=== PATIENT | male | born 1940 | race African-American/Black ===

== ENCOUNTER 2018-02-01 13:19 | Observation (INO) | payer OTHER ==
--- NOTE | 2018-02-01 14:43 | RAD REPORT ---
EXAM DESCRIPTION: RAD - Chest Single View - 02/01/2018 2:12 pm CLINICAL HISTORY: Cough and congestion, productive cough COMPARISON: August 2017 TECHNIQUE: AP portable chest image was obtained 1408 hours . FINDINGS: Diffusely prominent interstitial markings are present focally more prominent in the left b ase. No large mass or consolidation. Most of the findings are baseline. Superimposed interstitial juan diego ma or infiltrate suspected as well. Patient may have a focal left base pneumonia. Heart size is heriberto l. Trachea is midline. Pulmonary vasculature within normal limits. No pneumothorax. No gross bony abn ormality seen. No acute aortic findings suspected. IMPRESSION: Diffusely prominent interstitial markings throughout the lung lang and focally more pr onounced in the left base. Findings are more pronounced than baseline and left base pneumonia and superimposed interstitial yoanna a suspected.
[2018-02-01 14:48] LABS: Absolute Lymphocytes (CBC) 1.6 K/uL (0.7-4.9); Absolute Monocytes 0.8 K/uL (0.1-1.3); Absolute Neutrophil 3.1 K/uL (1.8-8.0); Basophils % 0.4 % (0-1.3); Eosinophils % 4.7 % (0-4.4); Hematocrit 34.5 % (39.6-49.0); Lymphocytes % 27.1 % (15.3-44.8); MCH 30.2 pg (27.0-35.0); MCV 91.9 fL (80-100); MPV 7.5 fL (7.6-11.3); Monocytes % 14.3 % (3.3-12.3); RBC Red Blood Cell Count 3.75 M/uL (4.33-5.43)
[2018-02-01 15:00] LABS: Potassium 4.2 mEq/L (3.6-5.0)
[2018-02-01 15:03] LABS: Magnesium 2.1 mg/dL (1.8-2.5)
[2018-02-01 15:05] LABS: Protime INR 1.04
[2018-02-01 15:11] LABS: CKMB Creatine Kinase MB 0.6 ng/ml (0.3-4.0)
--- NOTE | 2018-02-01 15:43 | EDPHYS ---
Physician Documentation [facility] Name: King Dumont Age: 77 yrs Sex: Male : 1940 Arrival Date: 02/01/2018 Time: 13:20 Bed 23 Private MD: ED Physician Mohmaud Donovan HPI: 02/01 15:47 This 77 yrs old Black Male presents to ER via Wheelchair with complaints of Chest snw Congestion. 15:47 The patient has shortness of breath at rest. Onset: The symptoms/episode began/occurred snw gradually, 1 week(s) ago, and became worse and became persistent. Duration: The symptoms are continuous, and are steadily getting worse. Associated signs and symptoms: The patient has no apparent associated signs or symptoms. Severity of symptoms: At their worst the symptoms were moderate. The patient has experienced similar episodes in the past. It is unknown whether or not the patient has recently seen a physician. Spoke with Dr. Gomez. He is out of town. Admit to hospitalist.. Historical: - Allergies: 13:21 No Known Allergies; aa5 - Home Meds: 13:36 aspirin 81 mg Oral TbEC once daily for Myocardial Infarction Prevention [Active]; Lasix tl3 40 mg Oral tab 1 tab 2 times per day for Hypertension [Active]; simvastatin 40 mg Oral tab 1 tab once daily [Active]; - PMHx: 13:21 High Cholesterol; Hypertension; Prostate Cancer; aa5 - PSHx: 13:21 radiation; Hernia repair; CABG; aa5 - Immunization history:: Pneumococcal vaccine status is unknown. - Social history:: Smoking status: Patient/guardian denies using tobacco. - Ebola Screening: : No symptoms or risks identified at this time. ROS: 15:44 Constitutional: Negative for fever, chills, and weight loss, positive malaise Eyes: snw Negative for injury, pain, redness, and discharge, ENT: Negative for injury, pain, and discharge, Neck: Negative for injury, pain, and swelling, Cardiovascular: Negative for chest pain, palpitations, and edema, Respiratory: Negative for wheezing and pleuritic chest pain, + cough, fatigue, and shortness of breath Abdomen/GI: Negative for abdominal pain, nausea, vomiting, diarrhea, and constipation, Back: Negative for injury and pain, : Negative for injury, bleeding, discharge, and swelling, MS/Extremity: Negative for injury and deformity, Skin: Negative for injury, rash, and discoloration, Neuro: Negative for headache, weakness, numbness, tingling, and seizure. Exam: 15:42 Constitutional: This is a well developed, well nourished patient who is awake, alert, snw and in no acute distress. Head/Face: Normocephalic, atraumatic. Eyes: Pupils equal round and reactive to light, extra-ocular motions intact. Lids and lashes normal. Conjunctiva and sclera are non-icteric and not injected. Cornea within normal limits. Periorbital areas with no swelling, redness, or edema. ENT: Nares patent. No nasal discharge, no septal abnormalities noted. Tympanic membranes are normal and external auditory canals are clear. Oropharynx with no redness, swelling, or masses, exudates, or evidence of obstruction, uvula midline. Mucous membranes moist. Neck: Trachea midline, no thyromegaly or masses palpated, and no cervical lymphadenopathy. Supple, full range of motion without nuchal rigidity, or vertebral point tenderness. No Meningismus. Chest/axilla: Normal chest wall appearance and motion. Nontender with no deformity. No lesions are appreciated. Cardiovascular: Regular rate and rhythm with a normal S1 and S2. No gallops, murmurs, or rubs. Normal PMI, no JVD. No pulse deficits. 15:42 Abdomen/GI: Soft, non-tender, with normal bowel sounds. No distension or tympany. No guarding or rebound. No evidence of tenderness throughout. Back: No spinal tenderness. No costovertebral tenderness. Full range of motion. Skin: Warm, dry with normal turgor. Normal color with no rashes, no lesions, and no evidence of cellulitis. MS/ Extremity: Pulses equal, no cyanosis. Neurovascular intact. Full, normal range of motion. Neuro: Awake and alert, GCS 15, oriented to person, place, time, and situation. Cranial nerves II-XII grossly intact. Motor strength 5/5 in all extremities. Sensory grossly intact. Cerebellar exam normal. Normal gait. Psych: Awake, alert, with orientation to person, place and time. Behavior, mood, and affect are within normal limits. 15:42 Respiratory: the patient does not display signs of respiratory distress, Respirations: shallow respirations, that is moderate, Breath sounds: bronchial sounds, decreased breath sounds, that are mild, are heard in the left posterior lower lobe and right posterior lower lobe. Vital Signs: 13:21 BP 126 / 82; Pulse 78; Resp 16 S; Temp 97.3(TE); Pulse Ox 97% on R/A; Pain 0/10; aa5 13:31 BP 121 / 84; Pulse 76; Resp 18; Pulse Ox 96% on R/A; tl3 14:55 BP 118 / 86; Pulse 72; Resp 16; Temp 98; Pulse Ox 97% on R/A; tl3 16:15 BP 92 / 74; Pulse 79; Resp 18; Pulse Ox 99% ; tl3 17:29 BP 111 / 66; Pulse 84; Resp 16; Pulse Ox 98% ; tl3 MDM: 13:41 Patient medically screened. snw 15:37 Data reviewed: vital signs, nurses notes. Data interpreted: Pulse oximetry: on room air snw is 97 %. Interpretation: normal. Counseling: I had a detailed discussion with the patient and/or guardian regarding: the historical points, exam findings, and any diagnostic results supporting the discharge/admit diagnosis, the presence of at least one elevated blood pressure reading (>120/80) during this emergency department visit, lab results, radiology results, the need for further work-up and treatment in the hospital. Physician consultation: Jimbo Shah DO was called at 15:39, was contacted at 15:39, regarding admission, to the telemetry unit. and will see patient in ED, shortly. 02/01 13:42 Order name: Basic Metabolic Panel; Complete Time: 15:w 02/01 13:42 Order name: BNP; Complete Time: 15:11 snw 02/01 13:42 Order name: CBC with Diff; Complete Time: 14:55 snw 02/01 13:42 Order name: Ckmb; Complete Time: 15:11 snw 02/01 13:42 Order name: CPK; Complete Time: 15:11 snw 02/01 13:42 Order name: Magnesium; Complete Time: 15:11 w 02/01 13:42 Order name: PT-INR; Complete Time: 15:10 w 02/01 13:42 Order name: Ptt, Activated; Complete Time: 15:10 snw 02/01 13:42 Order name: Troponin (emerg Dept Use Only); Complete Time: 15:10 snw 02/01 13:42 Order name: XRAY Chest (1 view); Complete Time: 14:45 snw 02/01 13:42 Order name: Blood Culture Adult (2) snw 02/01 16:19 Order name: Urine Dipstick--Ancillary (enter results) ag 02/01 16:27 Order name: Urine Dipstick-Ancillary; Complete Time: 16:28 EDMS 02/01 13:42 Order name: EKG; Complete Time: 13:43 snw 02/01 13:42 Order name: Cardiac monitoring; Complete Time: 14:54 snw 02/01 13:42 Order name: EKG - Nurse/Tech; Complete Time: 16:14 snw 02/01 13:42 Order name: IV Saline Lock; Complete Time: 14:54 snw 02/01 13:42 Order name: Labs collected and sent; Complete Time: 14:54 snw 02/01 13:42 Order name: O2 Per Protocol; Complete Time: 14:54 snw 02/01 13:42 Order name: O2 Sat Monitoring; Complete Time: 14:54 snw 02/01 13:42 Order name: Urine Dipstick-Ancillary (obtain specimen); Complete Time: 15:54 snw Administered Medications: 16:00 Drug: LevaQUIN 500 mg Volume: 100 ml; Route: IVPB; Infused Over: 60 mins; Site: left tl3 antecubital; Delivery: Primary tubing; 17:24 Follow up: IV Status: Completed infusion; IV Intake: 100ml tl3 16:00 Drug: Albuterol 2.5 mg Route: Inhalation; tl3 16:20 Drug: Albuterol 2.5 mg Route: Inhalation; tl3 16:50 Drug: Albuterol 2.5 mg Route: Inhalation; tl3 Disposition: 02/02 08:28 Co-signature as Attending Physician, Mohamud Donovan MD I agree with the assessment and kdr plan of care. Disposition: 02/01/18 15:42 Hospitalization ordered by Salvaodr Mckeon for Observation. Preliminary diagnosis is Pneumonia, unspecified organism. - Bed requested for Telemetry/MedSurg (observation). - Status is Observation. tl3 - Condition is Stable. - Problem is new. - Symptoms are unchanged. UTI on Admission? No Signatures: Dispatcher [employer] EDMohamud Golden MD MD [facility] Cyndy Anders, THERAPIST SPEECH-C THERAPIST SPEECH-Csnw Marely Wyatt, RN RN aa5 Kendy Lawson Tammy, MOSES RN tl3 Corrections: (The following items were deleted from the chart) 02/01 15:49 15:42 Hospitalization Ordered by Jimbo Shah DO for Observation. Preliminary snw diagnosis is Pneumonia, unspecified organism. Bed requested for Telemetry/MedSurg (observation). Status is Observation. Condition is Stable. Problem is new. Symptoms are unchanged. UTI on Admission? No. snw 16:54 15:49 02/01/2018 15:42 Hospitalization Ordered by Salvador Mckeon MD for Observation. ag Preliminary diagnosis is Pneumonia, unspecified organism. Bed requested for Telemetry/MedSurg (observation). Status is Observation. Condition is Stable. Problem is new. Symptoms are unchanged. UTI on Admission? No. snw 17:56 16:54 02/01/2018 15:42 Hospitalization Ordered by Salvador Mckeon MD for Observation. tl3 Preliminary diagnosis is Pneumonia, unspecified organism. Bed requested for Telemetry/MedSurg (observation). Status is Observation. Condition is Stable. Problem is new. Symptoms are unchanged. UTI on Admission? No. ag
--- NOTE | 2018-02-01 15:43 | ER ---
Nurse's Notes [facility] Name: King Dumont Age: 77 yrs Sex: Male : 1940 Arrival Date: 02/01/2018 Time: 13:20 Bed 23 Private MD: Diagnosis: Pneumonia, unspecified organism Presentation: 02/01 13:20 Presenting complaint: Patient states: chest congestion and productive cough with white aa5 sputum that began 1 week ago. Pt also reports SOB on exertion. Transition of care: patient was not received from another setting of care. Onset of symptoms was January 2018. 13:20 Method Of Arrival: Wheelchair aa5 13:20 Acuity: LOC 3 aa5 13:20 Risk Assessment: Do you want to hurt yourself or someone else? Patient reports no aa5 desire to harm self or others. Initial Sepsis Screen: Does the patient meet any 2 criteria? No. Patient's initial sepsis screen is negative. Does the patient have a suspected source of infection? No. Patient's initial sepsis screen is negative. Care prior to arrival: None. Historical: - Allergies: 13:21 No Known Allergies; aa5 - Home Meds: 13:36 aspirin 81 mg Oral TbEC once daily for Myocardial Infarction Prevention [Active]; Lasix tl3 40 mg Oral tab 1 tab 2 times per day for Hypertension [Active]; simvastatin 40 mg Oral tab 1 tab once daily [Active]; - PMHx: 13:21 High Cholesterol; Hypertension; Prostate Cancer; aa5 - PSHx: 13:21 radiation; Hernia repair; CABG; aa5 - Immunization history:: Pneumococcal vaccine status is unknown. - Social history:: Smoking status: Patient/guardian denies using tobacco. - Ebola Screening: : No symptoms or risks identified at this time. Screenin:31 Abuse screen: Denies threats or abuse. Nutritional screening: No deficits noted. tl3 Tuberculosis screening: No symptoms or risk factors identified. Fall Risk None identified. Assessment: 13:31 Reassessment: pt reports s/s for one week, no fever, cough worse when lying down, tl3 generalized malaise not feeling well for last couple of days. General: Appears in no apparent distress. slender, well groomed, well developed, well nourished, Behavior is calm, cooperative, appropriate for age. Pain: Denies pain. Neuro: No deficits noted. Level of Consciousness is awake, alert, obeys commands, Oriented to person, place, time, situation, Appropriate for age. Cardiovascular: Heart tones S1 S2 present Patient's skin is warm and dry. Respiratory: Airway is patent Respiratory effort is even, unlabored, Respiratory pattern is regular, symmetrical, Breath sounds are clear bilaterally. GI: No signs and/or symptoms were reported involving the gastrointestinal system. : No signs and/or symptoms were reported regarding the genitourinary system. EENT: Reports nasal congestion since one week. Derm: No signs and/or symptoms reported regarding the dermatologic system. Musculoskeletal: No signs and/or symptoms reported regarding the musculoskeletal system. 16:14 Reassessment: No changes from previously documented assessment. Patient and/or family tl3 updated on plan of care and expected duration. Pain level reassessed. Patient is alert, oriented x 3, equal unlabored respirations, skin warm/dry/pink. discussed POC with family, pt aware of need for admit. Vital Signs: 13:21 BP 126 / 82; Pulse 78; Resp 16 S; Temp 97.3(TE); Pulse Ox 97% on R/A; Pain 0/10; aa5 13:31 BP 121 / 84; Pulse 76; Resp 18; Pulse Ox 96% on R/A; tl3 14:55 BP 118 / 86; Pulse 72; Resp 16; Temp 98; Pulse Ox 97% on R/A; tl3 16:15 BP 92 / 74; Pulse 79; Resp 18; Pulse Ox 99% ; tl3 17:29 BP 111 / 66; Pulse 84; Resp 16; Pulse Ox 98% ; tl3 ED Course: 13:20 Patient arrived in ED. aa5 13:22 Triage completed. aa5 13:22 Arm band placed on Patient placed in an exam room, on a stretcher. aa5 13:24 Savannah Zendejas, RN is Primary Nurse. tl3 13:31 Patient has correct armband on for positive identification. Placed in gown. Bed in low tl3 position. Call light in reach. Side rails up X 1. Adult w/ patient. Pulse ox on. NIBP on. 13:31 No provider procedures requiring assistance completed. tl3 13:41 Cyndy Anders FNP-C [facility]. snw 13:41 Mohamud Donovan MD is Attending Physician. snw 14:12 X-ray completed. Portable x-ray completed in exam room. Patient tolerated procedure jb2 well. 14:13 XRAY Chest (1 view) In Process Unspecified. EDMS 14:14 EKG done, by ground control approach technician. reviewed by Cyndy BERNAL. at1 14:20 Initial lab(s) drawn, by me, sent to lab. First set of blood cultures drawn by me. tl3 14:37 Inserted saline lock: 20 gauge in left antecubital area, using aseptic technique. Blood tl3 collected. 15:00 Second set of blood cultures drawn. tl3 15:41 Jimbo Shah DO is Hospitalizing Provider. snw 15:48 Hospitalizing Provider role handed off by Jimbo Shah DO snw 15:48 Salvador Mckeon MD is Hospitalizing Provider. snw 17:24 Urine Dipstick--Ancillary (enter results) Sent. tl3 17:28 Patient admitted, IV remains in place. tl3 Administered Medications: 16:00 Drug: LevaQUIN 500 mg Volume: 100 ml; Route: IVPB; Infused Over: 60 mins; Site: left tl3 antecubital; Delivery: Primary tubing; 17:24 Follow up: IV Status: Completed infusion; IV Intake: 100ml tl3 16:00 Drug: Albuterol 2.5 mg Route: Inhalation; tl3 16:20 Drug: Albuterol 2.5 mg Route: Inhalation; tl3 16:50 Drug: Albuterol 2.5 mg Route: Inhalation; tl3 Intake: 17:24 IV: 100ml; Total: 100ml. tl3 Outcome: 15:42 Decision to Hospitalize by Provider. snw 17:28 Admitted to Med/surg accompanied by tech, via wheelchair, with chart, Report called to tl3 MOSES Schwarz 17:28 Condition: stable 17:28 Instructed on the need for admit. 17:56 Patient left the ED. tl3 Signatures: Dispatcher [employer] EDMS Cyndy Anders, GABE DAYP-CsnIsak Sampson jb2 Marely Wyatt, RN RN aa5 Elba coffman, conductor sleeping car EKG Tat1 Savannah Zendejas, RN RN tl3
--- NOTE | 2018-02-01 15:47 | EKG ---
Test Date: 2018-02-01 Test Time: 14:00:37 Foil Cutter: BRONSON MEASUREMENT RESULTS: Intervals: Rate: 78 WV: 158 QRSD: 88 QT: 384 QTc: 437 Donna: P: 35 WV: 158 QRS: -18 T: 11 INTERPRETIVE STATEMENTS: Normal sinus rhythm Nonspecific ST abnormality Abnormal ECG Compared to ECG 11/23/2016 07:18:49 Possible ischemia no longer present ST (T wave) deviation still present Electronically Signed On 02-01-18 15:46:06 CDT by Nils Gonzalez
[2018-02-01] MEDS ORDERED: ALBUTEROL 2.5 MG/3 ML NEB SOL ONE (15:58)
[2018-02-01] MEDS ORDERED: Levofloxacin500mg IV 500 MG/100 ML BAG IV ONE (15:58)
[2018-02-01] MEDS ORDERED: IPRATROPIUM BROM 0.5MG/2.5ML NEB PRN (16:03)
[2018-02-01] MEDS ORDERED: ONDANSETRON 4 MG/2 ML VIAL IV PRN (16:03)
[2018-02-01] MEDS ORDERED: ALBUTEROL 2.5 MG/3 ML NEB SOL NEB PRN (16:03)
[2018-02-01] MEDS ORDERED: ACETAMINOPHEN 500 MG TAB PO PRN (16:03)
[2018-02-01 16:27] LABS: Urine Blood NEGATIVE (NEG); Urine Glucose NEGATIVE (NEG); Urine Protein NEGATIVE (NEG); Urine Specific Gravity 1.015 (1.005-1.030)
[2018-02-01] MEDS: NA CHLORIDE 0.9% 1,000 ML IV SCH (18:16)
[2018-02-01] MEDS: ENOXAPARIN 30 MG/0.3 ML SQ SCH (18:16)
[2018-02-01 18:36] VITALS: BMI 25.9
--- NOTE | 2018-02-02 02:02 | HP ---
Date of Admission: 02/01/2018 Primary Care Physician: Kedar Gomez MD Code Status: Full. History Of Present Illness: The patient is a 77-year-old male with past medical history of coronary artery disease, prostate cancer, pulmonary fibrosis, urinary retention, who was in his usual state of health until day of admission when he had worsening shortness of breath along with cough and sputum production that was clear. The patient also had some nausea and weakness. The patient came into the ER for further evaluation. His symptoms are constant, moderate, progressively worsening. Upon arri prashanth, his vital signs were stable. He was saturating 97% on room air. His workup revealed left lower lobe pneumonia and prominent interstitial marking, possible superimposed interstitial edema was susp ected. The patient's workup revealed a creatinine of 1.29. White count was normal. The patient's B UN and creatinine were normal. Urine was negative. The patient was referred for admission for pneum onia. When seen in the ER, the patient was awake, alert, oriented, in some mild distress. Elderly m evan, somewhat ill-appearing. Past Medical History: Prostate cancer, coronary artery disease, urinary retention, pulmonary fibrosi s. Past Surgical History: Coronary artery bypass graft and radiation therapy for the prostate. Ildefonso oquendo history of DVT. Allergies: NO KNOWN DRUG ALLERGIES. Medications: List reviewed. Social History: The patient denies any illicit drug use, alcohol use, or tobacco use. The patient i s mainly independent in his activities of daily living. Family History: Noncontributory in this 77-year-old male. Review of Systems: Ten point system reviewed, negative except as per HPI. Physical Examination: Vital Signs: Blood pressure 126/82, pulse 78, respirations 16, temperature 97.3, O2 saturation 97% o n room air. General: Awake, alert, oriented x3. Some mild distress. Elderly male, ill-appearing, frail, cachec tic. HEENT: Normocephalic, atraumatic. PERRLA. EOMI. Dry mucous membranes. Oropharynx is clear. Poor dentition. Conjunctiva anicteric. Neck: Supple. No JVD. Trachea midline. CV: S1, S2. Regular rate and rhythm. Peripheral pulses present, 1+ bilaterally. Respiratory: Diminished breath sounds throughout, left worse than right. No wheezing. Gastrointestinal: Abdomen is soft, nontender, nondistended. Positive bowel sounds. No guarding or rigidity. Extremities: No clubbing, cyanosis, or edema. No calf tenderness. Neurologic: Cranial nerves II through XII intact grossly. No focal neurological deficit. Speech is normal. Strength is symmetric in bilateral upper and lower extremities. No facial asymmetry. Skin: No rashes. Normal skin turgor. Psych: Mood is okay. Affect is flat. Insight and judgment are fair. Laboratory Data: UA is negative. Sodium 140, potassium 4.2, chloride 104, CO2 of 29. BUN 27, creat inine 1.29, glucose 103, calcium 9.7. Troponin less than 0.03. Magnesium 2.1. BNP 55. INR 1.04. WBC 5.9, H and H 11.3 and 34.5, platelets 211, neutrophils 63%. Diagnostic Data: Chest x-ray shows left lower lobe infiltrate, diffuse prominent interstitial markin gs, superimposed interstitial edema also suspected. I personally reviewed EKG; normal sinus rhythm, rate of 78, nonspecific ST-T wave changes. Assessment And Plan: A 77-year-old male with; 1.Left lower lobe pneumonia. We will start on IV antibiotics. Obtain blood cultures and sputum cul tures. 2.Acute kidney injury. We will continue with IV fluids. Monitor creatinine, avoid NSAIDs. 3.History of coronary artery disease. [place] artery and [place] heart without angina, status post co ronary artery bypass graft. We will continue home medications as appropriate. 4.History of prostate cancer, status post radiation therapy. 5.Gastrointestinal and deep venous thrombosis prophylaxis with PPI and Lovenox, renally dosed. Plan: Admit the patient to [facility], placed in observation. /ANISH Voice ID: [id number]
[2018-02-02 05:03] LABS: Absolute Lymphocytes (CBC) 1.6 K/uL (0.7-4.9); Absolute Monocytes 0.8 K/uL (0.1-1.3); Absolute Neutrophil 3.6 K/uL (1.8-8.0); Basophils % 0.6 % (0-1.3); Hematocrit 31.3 % (39.6-49.0); Lymphocytes % 25.7 % (15.3-44.8); MCH 30.1 pg (27.0-35.0); MCV 92.2 fL (80-100); MPV 7.4 fL (7.6-11.3); Monocytes % 12.8 % (3.3-12.3)
[2018-02-02 05:38] LABS: Albumin 3.4 g/dL (3.2-5.5); Bilirubin Total 0.4 mg/dL (0.3-1.2); Potassium 3.9 mEq/L (3.6-5.0); Protein, Total 7.2 g/dL (6.0-8.3)
[2018-02-02] MEDS: NA CHLORIDE 0.9% 1,000 ML IV SCH (06:01)
--- NOTE | 2018-02-02 14:16 | RAD REPORT ---
EXAM DESCRIPTION: Riki Pa And Lat (2 Views)02/02/2018 1:56 pm CLINICAL HISTORY: Cough COMPARISON: February 01, 2018 FINDINGS: Moderate bilateral interstitial lung opacities are unchanged having the appearance of pulm onary fibrosis. The heart is normal size. Postsurgical changes involve the chest IMPRESSION: No change in pulmonary fibrosis
--- NOTE | 2018-02-02 14:21 | RAD REPORT ---
EXAM DESCRIPTION: RAD - Lumbar Spine 3 Views - 02/02/2018 1:53 pm CLINICAL HISTORY: Back pain FINDINGS: Moderate rotoscoliosis involves the thoracolumbar spine. The bones are osteoporotic. No fracture is seen. No dislocation is noted. Moderate diffuse spondylosis involves the lumbar spine. Osteoarthritis involves the facet joints of l ower lumbar spine. There likely is spinal stenosis.
[2018-02-02] MEDS ORDERED: VANCOMYCIN/NS 1 gm 1 GM/250 ML BAG IVPB SCH (14:45)
[2018-02-02] MEDS ORDERED: VANCOMYCIN 1.25 GM in NA CHLORIDE 0.9% 250 ML IVPB SCH (15:00)
[2018-02-02] MEDS ORDERED: TAMSULOSIN 0.4 MG SR CAP PO SCH (15:08)
[2018-02-02] MEDS ORDERED: HYDROCODONE/APAP 7.5/325 MG TAB PO PRN (15:09)
[2018-02-02] MEDS ORDERED: Levofloxacin 750mg IV 750 MG/150 ML BAG IV SCH (16:00)
[2018-02-02] MEDS: DOCUSATE NA 100 MG CAP PO SCH ×2 (16:32→20:20)
[2018-02-02] MEDS: POLYETHYL GLY 3350 17 GM/DOSE PO SCH (16:34)
[2018-02-02] MEDS: ENOXAPARIN 30 MG/0.3 ML SQ SCH (16:35)
--- NOTE | 2018-02-02 16:36 | PN ---
Date of Progress Note: 02/02/2018 Subjective: The patient is seen and examined. Chart reviewed and case discussed with RN. The patie nt's primary is Dr. Gomez; however, he is out of town. The patient states he is doing better. No shortness of breath. The patient states his cough is improving. Review of Systems: Negative except as above. Medications: Reviewed. Physical Examination: Vital Signs: Temperature 97.5, heart rate 78, blood pressure 120/78, respirations 16, O2 95%. General: Awake, alert, oriented. Some mild distress, ill-appearing, elderly male, frail. CV: S1, S2. No murmurs. Peripheral pulses present. Respiratory: Clear to auscultation bilaterally. No wheezing. No stridor. No use of accessory musc les. Gastrointestinal: Abdomen is soft, nontender, and nondistended. Positive bowel sounds. Extremities: No clubbing, cyanosis, edema. Neurologic: Nonfocal. Laboratory Data: Sodium 139, potassium 3.9, chloride 107, CO2 27, BUN 20, creatinine 1.14, glucose 1 00, calcium 8.7. WBC 6.4, H and H 10.2 and 31.3, platelets 186. Blood cultures, preliminarily growt h shows gram-positive cocci in clusters. Chest x-ray personally reviewed shows no change in pulmonar y fibrosis, moderate bilateral interstitial lung opacities are unchanged, having the appearance of pu lmonary fibrosis. Lumbar spine x-ray shows likely spinal stenosis, moderate diffuse spondylosis invo lving the lumbar spine, osteoarthritis involves the facet joints of lower lumbar spine. No fracture is seen. Bones are osteoporotic. Moderate rotoscoliosis involving thoracolumbar spine. Assessment And Plan: A 77-year-old male with: 1.Left lower lobe pneumonia. We will continue IV antibiotics. Cultures showing gram-positive cocci . We will add vancomycin to IV antibiotics. Currently on Levaquin. Follow up on ID and sensitivity . 2.Acute kidney injury, resolved. We will continue IV fluids. Avoid NSAIDs. Monitor creatinine. 3.Coronary artery disease, [place] artery and [place] heart without angina, status post coronary arter y bypass graft. Continue medications. 4.History of prostate cancer, status post radiation therapy. 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 X-ray does not show any acute fracture s. Does show some probable spinal stenosis. 6.Normocytic normochromic anemia, likely anemia of chronic disease. We will continue to monitor. 7.Gastrointestinal and deep venous thrombosis prophylaxis with PPI and Lovenox. Plan: Continue IV antibiotics, which have been adjusted. Follow up on ID and sensitivity of blood c ultures. Likely discharge in the next 24-48 hours once more stable. /ANISH Voice ID: [id number] Report ID: [id number]
[2018-02-02] MEDS ORDERED: FUROSEMIDE 40 MG TABLET PO SCH (17:00)
[2018-02-02] MEDS ORDERED: ATORVASTATIN 20 MG TAB PO SCH (21:00)
[2018-02-03 04:45] LABS: Absolute Lymphocytes (CBC) 1.5 K/uL (0.7-4.9); Absolute Monocytes 0.8 K/uL (0.1-1.3); Absolute Neutrophil 3.3 K/uL (1.8-8.0); Basophils % 0.3 % (0-1.3); Eosinophils % 5.8 % (0-4.4); Hematocrit 31.6 % (39.6-49.0); Lymphocytes % 25.2 % (15.3-44.8); MCH 30.7 pg (27.0-35.0); MCV 90.6 fL (80-100); MPV 7.1 fL (7.6-11.3); Monocytes % 13.6 % (3.3-12.3); RBC Red Blood Cell Count 3.49 M/uL (4.33-5.43)
[2018-02-03 05:18] LABS: Albumin 3.5 g/dL (3.2-5.5); Bilirubin Total 0.5 mg/dL (0.3-1.2); Potassium 3.9 mEq/L (3.6-5.0); Protein, Total 7.3 g/dL (6.0-8.3)
[2018-02-03 06:43] VITALS: O2SAT 99
[2018-02-03] MEDS ORDERED: ASPIRIN EC 81 MG TAB PO SCH (09:00)
[2018-02-03] MEDS ORDERED: FUROSEMIDE 40 MG TABLET PO SCH (09:00)
[2018-02-03] MEDS ORDERED: VITAMIN D 1000 UNIT TAB PO SCH (09:00)
[2018-02-03] MEDS ORDERED: FERROUS SULFATE 325 MG TAB PO SCH (09:00)
[2018-02-03 09:13] VITALS: BP 129/89; TEMP 98.2
[2018-02-03] MEDS: DOCUSATE NA 100 MG CAP PO SCH (09:31)
[2018-02-03] MEDS: POLYETHYL GLY 3350 17 GM/DOSE PO SCH (09:32)
--- NOTE | 2018-02-03 11:14 | DS ---
Date of Discharge: 02/03/2018 Primary Care Physician: Dr. Gomez. Admitting Diagnoses: 1. Pneumonia, left lower lobe. 2. Acute kidney injury. 3. History of coronary artery disease, tolowa dee-ni' artery and tolowa dee-ni' heart without angina. 4. History of prostate cancer, status post radiation therapy. Discharge Diagnoses: 1. Left lower lobe pneumonia, improved with antibiotics. 2. Acute kidney injury, improved. 3. Coronary artery disease, tolowa dee-ni' artery and tolowa dee-ni' heart without angina, status post coronary artery bypass graft. 4. History of prostate cancer, status post radiation therapy. 5. 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 6. Normocytic normochromic anemia, likely anemia of chronic disease. Hospital Course: The patient is a 77-year-old male, patient of Dr. Gomez, who was admitted to the hospitalist service while we were covering for him while he is out of town. The patient came in with shortness of breath. He does have history of heart disease, pulmonary fibrosis, prostate cancer. The patient was found to have pneumonia. He was started on IV antibiotics. His blood cultures remained negative, did show a contaminant in 1 bottle coagulase- negative Staph. The patient's condition improved significantly with treatment. His shortness of breath improved. Cough essentially resolved. Patient was sent home in a stable condition. Follow up with PCP in 2-3 days Return to ER for worsening condition Medications as per reconciliation list Activity as tolerated Diet Heart healthy Physical Exam: General: AAOx3, NAD CV: S1, S2, RRR. Resp: CTA B/L GI: abd soft NT/ND +BS Ext: no c/c/e Neuro: Non focal SA/MODL Voice ID: [id number] Report ID: [id number] MTDD
== END 2018-02-03 10:42 | disposition home or self-care (01) ==
LOC: ER 13:19 → ERHOLD 15:53 → 2ND 17:36
PROVIDERS: ADMIT Family Medicine; ATTEND Family Medicine
DX: J18.9 Pneumonia, unspecified organism (principal); N17.9 Acute kidney failure, unspecified; I25.10 Atherosclerotic heart disease of native coronary artery without angina pectoris; M47.896 Other spondylosis, lumbar region; D63.8 Anemia in other chronic diseases classified elsewhere; Z85.46 Personal history of malignant neoplasm of prostate
CPT/HCPCS: 36415 ×2; 71045; 71046; 72100; 80048; 80053 ×2; 81003; 82550; 82553; 83735; 83880; 84484; 85025 ×3; 85610; 85730; 87040 ×2; 87205 ×2; 93005; 94760 ×2; 96365; 97163; 99285; G0378 ×2; J1650 ×2; J7030 ×2

== ENCOUNTER 2019-09-30 17:01 | Emergency (ER) | payer OTHER ==
[2019-09-30] MEDS ORDERED: NA CHLORIDE 0.9% 500 ML ONE ×2 (19:06→21:41)
[2019-09-30 19:08] LABS: Absolute Lymphocytes (CBC) 1.8 K/uL (0.7-4.9); Basophils % 0.3 % (0-1.3); Hematocrit 33.8 % (39.6-49.0); Lymphocytes % 19.7 % (15.3-44.8)
[2019-09-30 19:23] LABS: ALT/SGPT 10 U/L (12-78); AST/SGOT 17 U/L (15-37); Albumin 3.7 g/dL (3.4-5.0); Alkaline Phosphatase 70 U/L (45-117); BUN Blood Urea Nitrogen 40 mg/dL (7-18); Bicarbonate 27 mmol/L (21-32); Bilirubin Direct < 0.1 mg/dL (0-0.2); Bilirubin Total 0.3 mg/dL (0.2-1.0); Glucose Level 108 mg/dL (74-106); Lipase 80 U/L (73-393); Potassium 4.2 mmol/L (3.5-5.1); Protein, Total 8.9 g/dL (6.4-8.2); Sodium Level 139 mmol/L (136-145)
[2019-09-30 19:56] LABS: Urine Bacteria LOADED /HPF (NONE SEEN); Urine RBC TNTC /HPF (NONE SEEN)
[2019-09-30 19:57] LABS: Urine Amorphous Sediment 4+ /HPF (NONE SEEN); Urine Culture Reflex Order REFLEXED
[2019-09-30 19:58] LABS: Urine Blood 3+ (NEG); Urine Glucose NEGATIVE (NEG); Urine Protein 3+ (NEG); Urine Specific Gravity 1.025 (1.005-1.030); Urine pH 5.5 (5.0-7.0)
--- NOTE | 2019-09-30 20:00 | RAD REPORT ---
EXAM DESCRIPTION: CT - Abdomen Pelvis Wo Contrast - 09/30/2019 7:40 pm CLINICAL HISTORY: Abdominal pain / dysuria COMPARISON: 2013 TECHNIQUE: Computed axial tomography of the abdomen and pelvis was obtained. IV and oral contrast we re not requested. All CT scans are performed using dose optimization technique as appropriate and may include automated exposure control or mA/KV adjustment according to patient size. FINDINGS: The evaluation of solid organs, vessels and bowel is limited secondary to the lack of con trast administration. The liver, spleen, pancreas, and adrenals. 3.4 centimeter low-density right renal mass. Tiny nonobstructing right renal calculi. Marked left hydronephrosis. Left renal cortical thinning is seen. Left ureter is not dilated to the l evel of the bladder. The bladder is distended with a thickened and trabeculated wall. Internal radiation beams have been placed into the periprostatic region. The prostate gland is not si gnificantly enlarged Inguinal hernia repair The appendix is normal. There is no evidence of diverticulitis. Small umbilical hernia Spondylosis involves lumbar spine resulting in spinal stenosis IMPRESSION: Marked left hydronephrosis. Given the renal cortical thinning they are likely is a chron ic component. Left ureter is dilated. There may be left UVJ stricture, small obstructing mass or vesi coureteral reflux. Trabeculated, thickened bladder wall. Bladder distention.
[2019-09-30] MEDS ORDERED: CEFTRIAXONE/SWI 1gm 1 GM/10 ML SYR ONE (20:23)
--- NOTE | 2019-09-30 21:45 | ER ---
Nurse's Notes [facility] Name: King Dumont Age: 79 yrs Sex: Male : 1940 Arrival Date: 09/30/2019 Time: 17:04 Bed 15 Private MD: Kedar Gomez Diagnosis: Urinary tract infection, site not specified Presentation: 09/30 17:43 Presenting complaint: Patient states: abdominal pain starts couple of days ago, severe rv pain on the pubic area area. also pain with urination. denies any nausea and vomiting but was not able to eat well. no fever. with history of hernia. Transition of care: patient was not received from another setting of care. Onset of symptoms was September 30, 2019 at 08:00. Risk Assessment: Do you want to hurt yourself or someone else? Patient reports no desire to harm self or others. Initial Sepsis Screen: Does the patient meet any 2 criteria? No. Patient's initial sepsis screen is negative. Does the patient have a suspected source of infection? No. Patient's initial sepsis screen is negative. Care prior to arrival: None. 17:43 Method Of Arrival: Ambulatory rv 17:43 Acuity: LOC 3 rv Historical: - Allergies: 17:49 No Known Allergies; rv - Home Meds: 17:49 aspirin 81 mg Oral TbEC once daily for Myocardial Infarction Prevention [Active]; Lasix rv 40 mg Oral tab 1 tab 2 times per day for Hypertension [Active]; simvastatin 40 mg Oral tab 1 tab once daily [Active]; - PMHx: 17:49 Prostate Cancer; High Cholesterol; rv - PSHx: 17:49 Hernia repair; CABG; rv - Immunization history:: Adult Immunizations up to date, Flu vaccine is up to date. - Coronavirus screen:: The patient has NOT traveled to [place], [place], or [place] in the past 14 days. Proceed with normal triage process as indicated. The patient has NOT had contact with known/suspected case of Coronavirus?. - Social history:: Smoking status: Patient denies any tobacco usage or history of. - Ebola Screening: : No symptoms or risks identified at this time. Screenin:16 Abuse screen: Denies threats or abuse. Denies injuries from another. Nutritional mg2 screening: No deficits noted. Tuberculosis screening: No symptoms or risk factors identified. Fall Risk IV access (20 points). Assessment: 19:15 General: Appears in no apparent distress. comfortable, Behavior is calm, cooperative. mg2 Pain: Denies pain. Neuro: Level of Consciousness is awake, alert, obeys commands, Oriented to person, place, time, situation. Cardiovascular: Capillary refill < 3 seconds Patient's skin is warm and dry. Respiratory: Airway is patent Respiratory effort is even, unlabored, Respiratory pattern is regular, symmetrical. GI: Bowel sounds present X 4 quads. Abd is soft and non tender. : Urine is cloudy, Reports burning with urination. EENT: No signs and/or symptoms were reported regarding the EENT system. Derm: Skin is intact, is healthy with good turgor, Skin is pink, warm \T\ dry. normal. Musculoskeletal: Circulation, motion, and sensation intact. Capillary refill < 3 seconds. 20:29 Reassessment: Patient appears in no apparent distress at this time. Patient and/or mg2 family updated on plan of care and expected duration. Pain level reassessed. Patient is alert, oriented x 3, equal unlabored respirations, skin warm/dry/pink. Vital Signs: 17:46 BP 114 / 67; Pulse 89; Resp 16; Temp 98.3; Pulse Ox 98% on R/A; Weight 68.04 kg; rv 19:16 Pulse 81; Resp 18; Temp 98; Pulse Ox 98% on R/A; mg2 19:17 BP 108 / 74; mg2 20:29 Pulse 86; Resp 18; Pulse Ox 95% on R/A; mg2 22:35 BP 115 / 78; Pulse 80; Resp 18; Temp 98; Pulse Ox 100% on R/A; mg2 ED Course: 17:04 Patient arrived in ED. ag5 17:04 Kedar Gomez MD is Private Physician. ag5 17:46 Triage completed. rv 18:20 [facility] pm1 18:20 Mohamud Donovan MD is Attending Physician. pm1 18:21 Terrell Mccord, MOSES is Primary Nurse. mg2 18:47 Radiology exam delayed due to lab results not completed at this time. (BUN/Creatinine). bq 19:01 Initial lab(s) drawn, by me, sent to lab. Inserted saline lock: 22 gauge in left mh5 antecubital area, using aseptic technique. Blood collected. 19:02 Basic Metabolic Panel Sent. mh5 19:02 CBC with Diff Sent. 5 19:02 Creatinine for Radiology Sent. mh5 19:02 Hepatic Function Sent. 5 19:02 Lipase Sent. mh5 19:02 Patient has correct armband on for positive identification. Placed in gown. Bed in low mh5 position. Call light in reach. Side rails up X 1. Adult w/ patient. Warm blanket given. Pulse ox on. NIBP on. 19:16 No provider procedures requiring assistance completed. mg2 19:16 Arm band placed on. mg2 19:40 Abdomen In Process Unspecified. EDMS 19:40 CT completed. Patient tolerated procedure well. Patient moved back from CT. bq 21:44 Nydia Salazar MD is Referral Physician. pm1 22:35 IV discontinued, intact, bleeding controlled, No redness/swelling at site. Pressure mg2 dressing applied. Administered Medications: 19:12 Drug: NS 0.9% 500 ml Route: IV; Rate: bolus; Site: left antecubital; mg2 20:28 Drug: Rocephin 1 grams Route: IV; Rate: calculated rate; Site: left antecubital; mg2 21:34 Follow up: Response: No adverse reaction; IV Status: Completed infusion mg2 21:39 Drug: NS 0.9% 500 ml Route: IV; Rate: bolus; Site: left antecubital; mg2 22:34 Follow up: Response: No adverse reaction; IV Status: Completed infusion; IV Intake: mg2 500ml Intake: 22:34 IV: 500ml; Total: 500ml. mg2 Outcome: 21:44 Discharge ordered by MD. pm1 22:35 Discharged to home ambulatory, with family. mg2 22:35 Condition: stable 22:35 Discharge instructions given to patient, family, Instructed on discharge instructions, follow up and referral plans. medication usage, Demonstrated understanding of instructions, follow-up care, medications, Prescriptions given X 1. 22:36 Patient left the ED. mg2 Signatures: Dispatcher [employer] EDMS Alicia Mcfarlane bq French Arguello, RAILROAD CRANE OPERATOR RAILROAD CRANE OPERATOR pm1 Annika Mota mh5 Terrell Mccord RN RN mg2 Kelby Laboy RN RN Cammie Motta 5 Corrections: (The following items were deleted from the chart) 17:51 17:43 Presenting complaint: Patient states: abdominal pain starts couple of days ago, rv severe pain on the pubic area area. also pain with urination. denies any nausea and vomiting but was not able to eat well. no fever. rv
--- NOTE | 2019-09-30 21:46 | EDPHYS ---
Physician Documentation [facility] Name: King Dumont Age: 79 yrs Sex: Male : 1940 Arrival Date: 09/30/2019 Time: 17:04 Bed 15 Private MD: Kedar Gomez ED Physician Mohamud Donovan HPI: 09/30 18:43 This 79 yrs old Black Male presents to ER via Ambulatory with complaints of Abdominal pm1 Pain, Burning with urination. 18:43 The patient presents with abdominal pain suprapubic area. Onset: The symptoms/episode pm1 began/occurred 5 day(s) ago. The symptoms do not radiate. Associated signs and symptoms: Pertinent positives: dysuria. The symptoms are described as burning. Modifying factors: The symptoms are alleviated by nothing, the symptoms are aggravated by urination. Severity of pain: in the emergency department the pain is actually worse. The patient has been recently seen by a physician: the patient's primary care provider, Dr. Gomez. Patient history of prostate cancer and has been taking antibiotics indefinitely for chronic UTI from Dr. Salazar. Saw his PCP at the beginning of the year and the antibiotic was stopped. He reports onset of burning with urination and abdominal pain since then. Historical: - Allergies: 17:49 No Known Allergies; rv - Home Meds: 17:49 aspirin 81 mg Oral TbEC once daily for Myocardial Infarction Prevention [Active]; Lasix rv 40 mg Oral tab 1 tab 2 times per day for Hypertension [Active]; simvastatin 40 mg Oral tab 1 tab once daily [Active]; - PMHx: 17:49 Prostate Cancer; High Cholesterol; rv - PSHx: 17:49 Hernia repair; CABG; rv - Immunization history:: Adult Immunizations up to date, Flu vaccine is up to date. - Coronavirus screen:: The patient has NOT traveled to [place], [place], or [place] in the past 14 days. Proceed with normal triage process as indicated. The patient has NOT had contact with known/suspected case of Coronavirus?. - Social history:: Smoking status: Patient denies any tobacco usage or history of. - Ebola Screening: : No symptoms or risks identified at this time. ROS: 18:43 Constitutional: Negative for fever, chills, and weight loss, Cardiovascular: Negative pm1 for chest pain, palpitations, and edema, Respiratory: Negative for shortness of breath, cough, wheezing, and pleuritic chest pain. 18:43 Back: Negative for injury and pain. 18:43 MS/Extremity: Negative for injury and deformity, Skin: Negative for injury, rash, and discoloration, Neuro: Negative for headache, weakness, numbness, tingling, and seizure. 18:43 Abdomen/GI: Positive for abdominal pain, of the suprapubic area, Negative for nausea, vomiting, and diarrhea. 18:43 : Positive for burning with urination, Negative for flank pain, testicular pain Exam: 18:43 Constitutional: This is a well developed, well nourished patient who is awake, alert, pm1 and in no acute distress. Head/Face: Normocephalic, atraumatic. Neck: Trachea midline, no thyromegaly or masses palpated, and no cervical lymphadenopathy. Supple, full range of motion without nuchal rigidity, or vertebral point tenderness. No Meningismus. Chest/axilla: Normal chest wall appearance and motion. Nontender with no deformity. No lesions are appreciated. Cardiovascular: Regular rate and rhythm with a normal S1 and S2. No gallops, murmurs, or rubs. Normal PMI, no JVD. No pulse deficits. Respiratory: Lungs have equal breath sounds bilaterally, clear to auscultation and percussion. No rales, rhonchi or wheezes noted. No increased work of breathing, no retractions or nasal flaring. 18:43 Skin: Warm, dry with normal turgor. Normal color with no rashes, no lesions, and no evidence of cellulitis. MS/ Extremity: Pulses equal, no cyanosis. Neurovascular intact. Full, normal range of motion. 18:43 Abdomen/GI: Inspection: abdomen appears normal, Palpation: soft, in all quadrants, mild abdominal tenderness, in the suprapubic area. 18:43 Back: CVA tenderness, is absent, vertebral tenderness, is not appreciated. 18:43 Neuro: Orientation: is normal, Motor: is normal, moves all fours. Vital Signs: 17:46 BP 114 / 67; Pulse 89; Resp 16; Temp 98.3; Pulse Ox 98% on R/A; Weight 68.04 kg; rv 19:16 Pulse 81; Resp 18; Temp 98; Pulse Ox 98% on R/A; mg2 19:17 BP 108 / 74; mg2 20:29 Pulse 86; Resp 18; Pulse Ox 95% on R/A; mg2 22:35 BP 115 / 78; Pulse 80; Resp 18; Temp 98; Pulse Ox 100% on R/A; mg2 MDM: 18:20 Patient medically screened. pm1 20:14 Data reviewed: vital signs. Data interpreted: Pulse oximetry: on room air is 98 %. pm1 Interpretation: normal. 21:38 Counseling: I had a detailed discussion with the patient and/or guardian regarding: the pm1 historical points, exam findings, and any diagnostic results supporting the discharge/admit diagnosis, lab results, radiology results, the need for outpatient follow up, a urologist, and PCP, to return to the emergency department if symptoms worsen or persist or if there are any questions or concerns that arise at home. 09/30 18:37 Order name: Basic Metabolic Panel; Complete Time: 19:36 pm1 09/30 18:37 Order name: CBC with Diff; Complete Time: 19:36 pm1 09/30 18:37 Order name: Creatinine for Radiology; Complete Time: 19:36 pm1 09/30 18:37 Order name: Hepatic Function; Complete Time: 19:36 pm1 09/30 18:37 Order name: Lipase; Complete Time: 19:36 pm1 09/30 18:37 Order name: Urine Microscopic Only; Complete Time: 20:00 pm1 09/30 18:37 Order name: IV Saline Lock; Complete Time: 19:02 pm1 09/30 19:21 Order name: Urine Dipstick--Ancillary (enter results); Complete Time: 20:00 em1 09/30 19:34 Order name: Abdomen ; Complete Time: 20:02 EDNH 09/30 19:58 Order name: Urine Culture EDNH 09/30 18:37 Order name: Labs collected and sent; Complete Time: 19:02 pm1 09/30 18:37 Order name: Urine Dipstick-Ancillary (obtain specimen); Complete Time: 19:12 pm1 Administered Medications: 19:12 Drug: NS 0.9% 500 ml Route: IV; Rate: bolus; Site: left antecubital; mg2 20:28 Drug: Rocephin 1 grams Route: IV; Rate: calculated rate; Site: left antecubital; mg2 21:34 Follow up: Response: No adverse reaction; IV Status: Completed infusion mg2 21:39 Drug: NS 0.9% 500 ml Route: IV; Rate: bolus; Site: left antecubital; mg2 22:34 Follow up: Response: No adverse reaction; IV Status: Completed infusion; IV Intake: mg2 500ml Disposition: 10/01 10:01 Co-signature as Attending Physician, Mohamud Donovan MD I agree with the assessment and kdr plan of care. Disposition: 09/30/19 21:44 Discharged to Home. Impression: Urinary tract infection, site not specified. - Condition is Stable. - Discharge Instructions: Urinary Tract Infection, Adult. - Prescriptions for Bactrim DS 800- 160 mg Oral Tablet - take 1 tablet by ORAL route every 12 hours for 10 days; 20 tablet. - Medication Reconciliation Form, Thank You Letter, Antibiotic Education, Prescription Opioid Use form. - Follow up: Emergency Department; When: As needed; Reason: Worsening of condition. Follow up: Nydai Salazar MD; When: 2 - 3 days; Reason: Recheck today's complaints, Continuance of care, Re-evaluation by your physician. - Problem is new. - Symptoms have improved. Signatures: Dispatcher [employer] [facility] Mohamud Donovan MD MD [facility] French Arguello NP AGING ROOM OPERATOR pm1 Terrell Mccord, RN RN mg2 Kelby Laboy RN RN rv Corrections: (The following items were deleted from the chart) 09/30 19:34 18:38 Abdomen Pelvis W Con+CT.RAD.BRZ ordered. [facility] 22:36 21:44 09/30/2019 21:44 Discharged to Home. Impression: Urinary tract infection, site mg2 not specified. Condition is Stable. Forms are Medication Reconciliation Form, Thank You Letter, Antibiotic Education, Prescription Opioid Use. Follow up: Emergency Department; When: As needed; Reason: Worsening of condition. Follow up: Nydia Salazar; When: 2 - 3 days; Reason: Recheck today's complaints, Continuance of care, Re-evaluation by your physician. Problem is new. Symptoms have improved. pm1
[2019-09-30 23:06] VITALS: TEMP 98
[2019-09-30 23:10] VITALS: BP 115/78; O2SAT 100
== END 2019-09-30 22:36 | disposition home or self-care (01) ==
LOC: ER 17:01
DX: N39.0 Urinary tract infection, site not specified (principal); Z85.46 Personal history of malignant neoplasm of prostate; Z95.1 Presence of aortocoronary bypass graft
CPT/HCPCS: 96365; 96361; 87088; 85025; 87086; 80048; 36415; 80076; 83690; 74176; 99284; J0696; J7040 ×2; 81003; 81015

== ENCOUNTER 2020-01-23 13:17 | Emergency (ER) | payer OTHER ==
--- NOTE | 2020-01-23 15:43 | RAD REPORT ---
EXAM DESCRIPTION: Riki Single View01/23/2020 3:29 pm CLINICAL HISTORY: Shortness breath COMPARISON: 2019 FINDINGS: Bilateral interstitial lung opacities are unchanged. I suspect most not all this is chron ic The heart is mildly enlarged. Postsurgical changes involve the chest.
[2020-01-23 15:55] LABS: Absolute Lymphocytes (CBC) 1.5 K/uL (0.7-4.9); Basophils % 0.6 % (0-1.3); Hematocrit 34.7 % (39.6-49.0); Lymphocytes % 22.7 % (15.3-44.8); MPV 7.7 fL (7.6-11.3); RBC Red Blood Cell Count 3.84 M/uL (4.33-5.43)
[2020-01-23 16:00] LABS: Protime INR 1.06
[2020-01-23 16:14] LABS: ALT/SGPT 13 U/L (12-78); AST/SGOT 21 U/L (15-37); Albumin 3.8 g/dL (3.4-5.0); Alkaline Phosphatase 70 U/L (45-117); BUN Blood Urea Nitrogen 23 mg/dL (7-18); Bicarbonate 29 mmol/L (21-32); Bilirubin Direct 0.1 mg/dL (0-0.2); Bilirubin Total 0.3 mg/dL (0.2-1.0); Glucose Level 94 mg/dL (74-106); Magnesium 2.4 mg/dL (1.8-2.4); NT PRO-BNP 207 pg/mL (<450); Potassium 3.6 mmol/L (3.5-5.1); Protein, Total 9.4 g/dL (6.4-8.2); Sodium Level 140 mmol/L (136-145); Troponin (Emerg Dept Use Only) < 0.02 ng/mL (0.0-0.045)
--- NOTE | 2020-01-23 17:35 | ER ---
Nurse's Notes [facility] Name: King Dumont Age: 79 yrs Sex: Male : 1940 Arrival Date: 01/23/2020 Time: 13:21 Bed 4 Private MD: Diagnosis: Cough;Muscle weakness (generalized) Presentation: 01/22 13:26 Chief complaint: Patient states: decreased appetite, "stressing out on everything" sv started 3 days ago. Reports cough and SOB for 3 -4 days as well. Coronavirus screen: Proceed with normal triage. Patient reports a cough. Patient reports shortness of breath or difficulty breathing. Patient denies measured and/or subjective temperature greater than 100.4F prior to today's visit. Patient denies travel on a cruise ship or to a country the [facility] currently lists as an affected area. Patient denies contact with known and/or suspected case of COVID-19. Ebola Screen: No symptoms or risks identified at this time. Risk Assessment: Do you want to hurt yourself or someone else? Patient reports no desire to harm self or others. Onset of symptoms was January 19, 2020. 13:26 Method Of Arrival: Ambulatory sv 13:26 Acuity: LOC 3 sv 13:29 Initial Sepsis Screen: Does the patient meet any 2 criteria? No. Patient's initial sv sepsis screen is negative. Does the patient have a suspected source of infection? No. Patient's initial sepsis screen is negative. Triage Assessment: 13:31 General: Appears in no apparent distress. comfortable, Behavior is calm, cooperative, sv appropriate for age. Neuro: Level of Consciousness is awake, alert, obeys commands, Gait is steady. Respiratory: Respiratory effort is even, unlabored. Historical: - Allergies: 13:29 No Known Allergies; sv - PMHx: 13:29 High Cholesterol; Prostate Cancer; sv - PSHx: 13:29 Hernia repair; CABG; sv - Immunization history:: Adult Immunizations up to date. - Social history:: Smoking status: Patient denies any tobacco usage or history of. Screenin:47 Abuse screen: Denies threats or abuse. Denies injuries from another. Nutritional ph screening: No deficits noted. Tuberculosis screening: No symptoms or risk factors identified. Fall Risk None identified. Assessment: 15:46 General: Appears in no apparent distress. comfortable, well groomed, Behavior is calm, ph cooperative, appropriate for age, Reports fatigue for 1-2 days, Denies fever, chills. Pain: Denies pain. Neuro: Level of Consciousness is awake, alert, obeys commands, Oriented to person, place, time, situation, Reports weakness Denies blurred vision difficulty swallowing, headache. Cardiovascular: Reports fatigue, shortness of breath, Denies chest pain, vomiting, Capillary refill < 3 seconds in bilateral fingers Patient's skin is warm and dry. Respiratory: Reports shortness of breath on exertion cough that is non-productive, Airway is patent Respiratory effort is even, unlabored, Respiratory pattern is regular, symmetrical. GI: Patient currently denies abdominal pain, diarrhea, nausea, vomiting. : Denies burning with urination, urinary frequency. Derm: Skin is intact, is healthy with good turgor, Skin is pink, warm \\T\\ dry. 17:00 Reassessment: Patient appears in no apparent distress at this time. No changes from jl7 previously documented assessment. Patient and/or family updated on plan of care and expected duration. Pain level reassessed. Patient is alert, oriented x 3, equal unlabored respirations, skin warm/dry/pink. Vital Signs: 13:29 BP 112 / 87; Pulse 89; Resp 16; Temp 98.1; Pulse Ox 97% ; Height 5 ft. 2 in. (157.48 sv cm); 16:30 BP 117 / 87; Pulse 88; Resp 16; Pulse Ox 96% ; jl7 17:30 BP 139 / 85; Pulse 83; Resp 16; Pulse Ox 98% ; jl7 ED Course: 13:21 Patient arrived in ED. as 13:29 Triage completed. sv 13:29 Arm band placed on. sv 15:01 Jean Marie Beltrán PA is PHCP. jr8 15:01 Mohamud Donovan MD is Attending Physician. jr8 15:04 Lala Meza RN is Primary Nurse. ph 15:30 XRAY Chest (1 view) In Process Unspecified. EDMS 15:30 Missed attempt(s): 20 gauge in left hand. Bleeding controlled, band aid applied, dh3 catheter tip intact. 15:34 Initial lab(s) drawn, by me, sent to lab. Inserted saline lock: 20 gauge in left dh3 antecubital area, using aseptic technique. Blood collected. 15:40 EKG done, by ED staff, reviewed by Jean Marie GALVEZ. 3 15:48 Patient has correct armband on for positive identification. Placed in gown. Bed in low ph position. Call light in reach. Side rails up X 1. Pulse ox on. NIBP on. Door closed. Noise minimized. Warm blanket given. 17:49 No provider procedures requiring assistance completed. IV discontinued, intact, jl7 bleeding controlled, No redness/swelling at site. Pressure dressing applied. Administered Medications: No medications were administered Outcome: 17:35 Discharge ordered by . ayush 17:49 Discharged to home via wheelchair, with family. jl7 17:49 Condition: stable 17:49 Discharge instructions given to patient, Instructed on discharge instructions, follow up and referral plans. Demonstrated understanding of instructions, follow-up care. 17:49 Patient left the ED. jl7 Signatures: Dispatcher [employer] EDMS Samanta Naik RN RN Courtney Mota Josh, PA PA jr8 Lala Meza RN RN Trevor Edmonds RN RN jl7 Riri Christianson 3 Corrections: (The following items were deleted from the chart) 13:32 13:29 Resp 16bpm; Pulse Ox 97%; Temp 98.1F; Height 5 ft. 2 in.; sv sv 15:47 15:46 Respiratory: Reports shortness of breath on exertion Airway is patent Respiratory ph effort is even, unlabored, Respiratory pattern is regular, symmetrical, ph
--- NOTE | 2020-01-23 17:35 | EDPHYS ---
Physician Documentation [facility] Name: King Dumont Age: 79 yrs Sex: Male : 1940 Arrival Date: 01/23/2020 Time: 13:21 Bed 4 Private MD: ED Physician Mohamud Donovan HPI: 01/22 15:17 This 79 yrs old Black Male presents to ER via Ambulatory with complaints of Decreased jr8 appetite and fatigue. 15:17 Patient stated that he has not felt well for past few days. Loss of appetite and jr8 fatigue. Has had dry cough and some shortness of breath as well. Denies fevers or other symptoms. Severity of symptoms: At their worst the symptoms were mild in the emergency department the symptoms are unchanged. The patient has not experienced similar symptoms in the past. The patient has not recently seen a physician. Historical: - Allergies: 13:29 No Known Allergies; sv - PMHx: 13:29 High Cholesterol; Prostate Cancer; sv - PSHx: 13:29 Hernia repair; CABG; sv - Immunization history:: Adult Immunizations up to date. - Social history:: Smoking status: Patient denies any tobacco usage or history of. ROS: 15:17 Eyes: Negative for injury, pain, redness, and discharge, ENT: Negative for injury, jr8 pain, and discharge, Neck: Negative for injury, pain, and swelling, Cardiovascular: Negative for chest pain, palpitations, and edema, Abdomen/GI: Negative for abdominal pain, nausea, vomiting, diarrhea, and constipation, Back: Negative for injury and pain, : Negative for injury, bleeding, discharge, and swelling, buring, frequency, or urgency MS/Extremity: Negative for injury and deformity, Skin: Negative for injury, rash, and discoloration, Neuro: Negative for headache, weakness, numbness, tingling, and seizure. 15:17 Constitutional: Positive for fatigue, poor PO intake. 15:17 Respiratory: Positive for cough, dyspnea on exertion, shortness of breath. Exam: 15:17 Eyes: Pupils equal round and reactive to light, extra-ocular motions intact. Lids and jr8 lashes normal. Conjunctiva and sclera are non-icteric and not injected. Cornea within normal limits. Periorbital areas with no swelling, redness, or edema. ENT: Nares patent. No nasal discharge, no septal abnormalities noted. Tympanic membranes are normal and external auditory canals are clear. Oropharynx with no redness, swelling, or masses, exudates, or evidence of obstruction, uvula midline. Mucous membranes moist. Neck: Trachea midline, no thyromegaly or masses palpated, and no cervical lymphadenopathy. Supple, full range of motion without nuchal rigidity, or vertebral point tenderness. No Meningismus. Abdomen/GI: Soft, non-tender, with normal bowel sounds. No distension or tympany. No guarding or rebound. No evidence of tenderness throughout. Back: No spinal tenderness. No costovertebral tenderness. Full range of motion. Skin: Warm, dry with normal turgor. Normal color with no rashes, no lesions, and no evidence of cellulitis. MS/ Extremity: Pulses equal, no cyanosis. Neurovascular intact. Full, normal range of motion. Neuro: Awake and alert, GCS 15, oriented to person, place, time, and situation. Cranial nerves II-XII grossly intact. Motor strength 5/5 in all extremities. Sensory grossly intact. Cerebellar exam normal. Normal gait. 15:17 Cardiovascular: Rate: normal, Rhythm: regular, Pulses: Pulses are 2+ in right radial artery and left radial artery. Heart sounds: murmur, systolic, grade 3 over 6, heard in the aortic area, S1, normal, S2, normal, Edema: is not appreciated, JVD: is not appreciated. 15:17 Respiratory: the patient does not display signs of respiratory distress, Respirations: normal, symetrical, no use of accessory muscles, no grunting, no evidence of nasal flaring, no prolonged exhalations, no pursed lip breathing, no retractions, no shallow respirations, no splinting, no tachypnea, Breath sounds: rales, that are mild, are located in both bases. Vital Signs: 13:29 BP 112 / 87; Pulse 89; Resp 16; Temp 98.1; Pulse Ox 97% ; Height 5 ft. 2 in. (157.48 sv cm); 16:30 BP 117 / 87; Pulse 88; Resp 16; Pulse Ox 96% ; jl7 17:30 BP 139 / 85; Pulse 83; Resp 16; Pulse Ox 98% ; jl7 MDM: 15:01 Patient medically screened. jr8 17:32 Data reviewed: vital signs, nurses notes, lab test result(s), EKG, radiologic studies, plain films. Data interpreted: Pulse oximetry: on room air is 97 %. Interpretation: normal. Counseling: I had a detailed discussion with the patient and/or guardian regarding: the historical points, exam findings, and any diagnostic results supporting the discharge/admit diagnosis, lab results, radiology results, the need for outpatient follow up, a family practitioner, to return to the emergency department if symptoms worsen or persist or if there are any questions or concerns that arise at home. ED course: Discussed with patient that there are no acute emergent findings requiring admission to hospital at this time. Recommend observation at home. If symptoms were to worsen or change to come back for further evaluation. Otherwise to f/u with PCP. Patient good with this plan . 01/22 15:11 Order name: Basic Metabolic Panel; Complete Time: 16:42 jr8 01/22 15:11 Order name: CBC with Diff; Complete Time: 16:06 8 01/22 15:11 Order name: LFT's; Complete Time: 16:42 8 01/22 15:11 Order name: Magnesium; Complete Time: 16:42 8 01/22 15:11 Order name: NT PRO-BNP; Complete Time: 16:42 8 01/22 15:11 Order name: PT-INR; Complete Time: 16:06 01/22 15:11 Order name: Troponin (emerg Dept Use Only); Complete Time: 16:42 jr8 01/22 15:11 Order name: XRAY Chest (1 view); Complete Time: 15:54 8 01/22 15:11 Order name: EKG; Complete Time: 15:11 8 01/22 15:11 Order name: Cardiac monitoring; Complete Time: 15:50 8 01/22 15:11 Order name: EKG - Nurse/Tech; Complete Time: 15:50 01/22 15:11 Order name: IV Saline Lock; Complete Time: 15:50 01/22 15:11 Order name: Labs collected and sent; Complete Time: 15:51 jr8 01/22 15:11 Order name: O2 Per Protocol; Complete Time: 15:51 8 01/22 15:11 Order name: O2 Sat Monitoring; Complete Time: 15: Administered Medications: No medications were administered Disposition: 01/23 09:15 Co-signature as Attending Physician, Mohamud Donovan MD I agree with the assessment and kdr plan of care. Disposition: 01/23/20 17:35 Discharged to Home. Impression: Cough, Muscle weakness (generalized). - Condition is Stable. - Discharge Instructions: Weakness, Cough, Adult. - Medication Reconciliation Form, Thank You Letter, Antibiotic Education, Prescription Opioid Use form. - Follow up: Private Physician; When: 2 - 3 days; Reason: Recheck today's complaints, Continuance of care, Re-evaluation by your physician. - Problem is new. - Symptoms are unchanged. Signatures: Dispatcher [employer] EDMS Samanta Naik RN RN Mohamud Donovan MD MD kdr Roszak, Josh, PA PA jr8 Trevor Edmonds RN RN jl7 Corrections: (The following items were deleted from the chart) 01/22 17:32 15:17 Eyes: Negative for injury, pain, redness, and discharge, ENT: Negative for jr8 injury, pain, and discharge, Neck: Negative for injury, pain, and swelling, Cardiovascular: Negative for chest pain, palpitations, and edema, Abdomen/GI: Negative for abdominal pain, nausea, vomiting, diarrhea, and constipation, Back: Negative for injury and pain, MS/Extremity: Negative for injury and deformity, Skin: Negative for injury, rash, and discoloration, Neuro: Negative for headache, weakness, numbness, tingling, and seizure, jr8 17:49 17:35 01/23/2020 17:35 Discharged to Home. Impression: Cough; Muscle weakness jl7 (generalized). Condition is Stable. Forms are Medication Reconciliation Form, Thank You Letter, Antibiotic Education, Prescription Opioid Use. Follow up: Private Physician; When: 2 - 3 days; Reason: Recheck today's complaints, Continuance of care, Re-evaluation by your physician. Problem is new. Symptoms are unchanged. jr8
[2020-01-23 18:13] VITALS: TEMP 98.1
[2020-01-23 18:17] VITALS: BP 139/85; O2SAT 98
--- NOTE | 2020-01-24 06:30 | EKG ---
Test Date: 2020-01-23 Test Time: 15:40:39 Human Resources Supervisor: ODIN MEASUREMENT RESULTS: Intervals: Rate: 78 MS: 152 QRSD: 86 QT: 386 QTc: 440 Henley: P: 30 MS: 152 QRS: 3 T: 20 INTERPRETIVE STATEMENTS: Normal sinus rhythm Possible Left atrial enlargement Nonspecific ST and T wave abnormality Abnormal ECG Compared to ECG 02/01/2018 14:00:37 No significant changes Electronically Signed On 01-24-20 06:30:10 CDT by Nolan Benson
== END 2020-01-23 17:49 | disposition home or self-care (01) ==
LOC: ER 13:17
DX: R05 Cough (principal); M62.81 Muscle weakness (generalized); Z95.1 Presence of aortocoronary bypass graft; Z85.46 Personal history of malignant neoplasm of prostate
CPT/HCPCS: 36415; 71045; 80048; 80076; 83735; 83880; 84484; 85025; 85610; 93005; 99284

== ENCOUNTER 2020-01-24 12:05 | Emergency (ER) | payer OTHER ==
--- NOTE | 2020-01-24 13:08 | ER ---
Nurse's Notes [facility] [place] [address] [place] Name: King Dumont Age: 79 yrs Sex: Male : 1940 Arrival Date: 01/24/2020 Time: 12:09 Bed 19 Private MD: Diagnosis: Upper Back Pain - Resolved Presentation: 01/23 12:10 Chief complaint: Patient states: upper back pain that started last night. Pt took Tylenol 500mg at 1000am and pain is now 1/10. Coronavirus screen: Proceed with normal triage. Patient denies a cough. Patient denies shortness of breath or difficulty breathing. Patient denies measured and/or subjective temperature greater than 100.4F prior to today's visit. Patient denies travel on a cruise ship or to a country the [facility] currently lists as an affected area. Patient denies contact with known and/or suspected case of COVID-19. Ebola Screen: No symptoms or risks identified at this time. Initial Sepsis Screen: Does the patient meet any 2 criteria? No. Patient's initial sepsis screen is negative. Does the patient have a suspected source of infection? No. Patient's initial sepsis screen is negative. Risk Assessment: Do you want to hurt yourself or someone else? Patient reports no desire to harm self or others. Onset of symptoms was January 23, 2020. 12:10 Method Of Arrival: EMS: [facility] 12:10 Acuity: LOC 3 Historical: - Allergies: 12:16 No Known Allergies; - Home Meds: 12:16 aspirin 81 mg Oral TbEC once daily for Myocardial Infarction Prevention [Active]; Lasix ah 40 mg Oral tab 1 tab 2 times per day for Hypertension [Active]; simvastatin 40 mg Oral tab 1 tab once daily [Active]; tamsulosin 0.4 mg oral cp24 [Active]; finasteride 5 mg oral tab [Active]; furosemide 40 mg Oral tab [Active]; - PMHx: 12:16 High Cholesterol; Prostate Cancer; Hypertension; - PSHx: 12:16 bypass; - Immunization history:: Adult Immunizations up to date. - Social history:: Smoking status: Patient denies any tobacco usage or history of. Patient/guardian denies using alcohol. Screenin:56 Abuse screen: Denies threats or abuse. Nutritional screening: No deficits noted. Tuberculosis screening: No symptoms or risk factors identified. Fall Risk None identified. Assessment: 12:10 General: Appears in no apparent distress. Behavior is calm, cooperative, appropriate for age. Pain: Complains of pain in back Pain currently is 1 out of 10 on a pain scale. Alleviated by medications. Neuro: Level of Consciousness is awake, alert, Oriented to person, place, time, situation, Manuscript Editor are equal bilaterally. Cardiovascular: Heart tones S1 S2 present. Respiratory: Airway is patent Respiratory effort is even, unlabored, Respiratory pattern is regular, symmetrical. GI: Bowel sounds present X 4 quads. : No signs and/or symptoms were reported regarding the genitourinary system. EENT: No signs and/or symptoms were reported regarding the EENT system. Derm: No signs and/or symptoms reported regarding the dermatologic system. Musculoskeletal:. 13:15 Reassessment: Pt given discharge instructions and taken to lobby to his . Pt voiced understanding. was on the phone with daughter to pick them up and daughter requested to speak to nurse. Daughter asked what tests were run on the patient today, I replied that he was discharged yesterday evening and since there was no injury the provider reviewed all labs and images performed at that visit. Pt states that his pain is a 1/10 upon arrival to the hospital and has no more pain. The daughter continued to question what was done at yesterdays visit including labs and imaging. I replied that I was not here yesterday so I do not know any of that information. The daughter asked to speak to someone that knew what they were talking about and aware of yesterdays visit. Informed DEMETRIA Rose of conversation and she went to the lobby to speak to family. 13:30 Reassessment: Per verbal order, went to lobby and assisted Pt to the restroom to collect urine. Pt tolerated well and was put back in the lobby with in . I informed them I would inform them of results as they were completed. 13:45 Reassessment: Informed and Pt that urine was completey clean and that they were able to go home. politely thanked us for taking care of him. Vital Signs: 12:05 BP 134 / 92; Pulse 83; Resp 16; Pulse Ox 97% ; ah 12:10 BP 134 / 92; Pulse 82; Resp 18; Temp 99.1; Pulse Ox 99% ; Weight 64.41 kg; Height 5 ft. 2 in. (157.48 cm); Pain 1/10; 13:00 BP 125 / 90; Pulse 79; Resp 16; Pulse Ox 96% ; Pain 1/10; ah 12:10 Body Mass Index 25.97 (64.41 kg, 157.48 cm) ED Course: 12:09 Patient arrived in ED. 12:10 Mireya Gonzalez, RN is Primary Nurse. 12:12 Triage completed. 12:18 [facility] kb 12:19 Mohamud Donovan MD is Attending Physician. kb 12:56 Patient has correct armband on for positive identification. Bed in low position. Call light in reach. Side rails up X2. 13:15 No provider procedures requiring assistance completed. Patient did not have IV access during this emergency room visit. Administered Medications: No medications were administered Outcome: 13:08 Discharge ordered by . kb 13:45 Discharged to home via wheelchair. 13:45 Condition: good 13:45 Discharge instructions given to patient, family, Instructed on discharge instructions, Demonstrated understanding of instructions, follow-up care. 14:01 Patient left the ED. Signatures: Rose Flores FNP-C FNP-Michaelb Mireya Gonzalez RN RN
--- NOTE | 2020-01-24 13:08 | EDPHYS ---
Physician Documentation [facility] Name: King Dumont Age: 79 yrs Sex: Male : 1940 Arrival Date: 01/24/2020 Time: 12:09 Bed 19 Private MD: ED Physician Mohamud Donovan HPI: 01/23 13:05 This 79 yrs old Black Male presents to ER via EMS with complaints of upper back and kb neck pain. 13:05 The patient has not experienced similar symptoms in the past. The patient has been kb recently seen at the [facility] Emergency Department, yesterday, for unrelated complaints. 13:05 The patient presents with pain that is acute, with no known mechanism of injury. The kb symptoms are located in the posterior cervical area, left trapezius and right trapezius. Onset: The symptoms/episode began/occurred last night. The pain does not radiate. Associated signs and symptoms: Pertinent positives: none Pertinent negatives: abdominal pain, chest pain, constipation, dysuria, fever, headache, hematuria, incontinence, nausea, numbness, tingling, urinary retention, vomiting, weakness. The problem was sustained without known cause. Modifying factors: The patient symptoms are alleviated by OTC meds, tylenol, the patient symptoms are aggravated by nothing. Severity of symptoms: At their worst the symptoms were moderate, in the emergency department the symptoms have resolved. Pt reports back pain that started last night. STates he took 2 tylenol and the pain resolved. States "my is the one that called the ambulance. I don't know why she did. I feel pretty good now.". Historical: - Allergies: 12:16 No Known Allergies; - Home Meds: 12:16 aspirin 81 mg Oral TbEC once daily for Myocardial Infarction Prevention [Active]; Lasix ah 40 mg Oral tab 1 tab 2 times per day for Hypertension [Active]; simvastatin 40 mg Oral tab 1 tab once daily [Active]; tamsulosin 0.4 mg oral cp24 [Active]; finasteride 5 mg oral tab [Active]; furosemide 40 mg Oral tab [Active]; - PMHx: 12:16 High Cholesterol; Prostate Cancer; Hypertension; ah - PSHx: 12:16 bypass; ah - Immunization history:: Adult Immunizations up to date. - Social history:: Smoking status: Patient denies any tobacco usage or history of. Patient/guardian denies using alcohol. ROS: 13:07 Constitutional: Negative for fever, chills, and weight loss, ENT: Negative for injury, kb pain, and discharge, Cardiovascular: Negative for chest pain, palpitations, and edema, Respiratory: Negative for shortness of breath, cough, wheezing, and pleuritic chest pain, Abdomen/GI: Negative for abdominal pain, nausea, vomiting, diarrhea, and constipation, : Negative for injury, bleeding, discharge, and swelling, MS/Extremity: Negative for injury and deformity, Skin: Negative for injury, rash, and discoloration, Neuro: Negative for headache, weakness, numbness, tingling, and seizure. 13:07 Neck: Positive for pain with movement, pain at rest, Negative for injury or acute deformity, mass, rash, stiffness, swelling, swollen nodes, tenderness, bony tenderness. 13:07 Back: Positive for pain at rest, pain with movement, of the left trapezius and right trapezius, Negative for injury or acute deformity, decreased range of motion, radiated pain. Exam: 13:07 Constitutional: This is a well developed, well nourished patient who is awake, alert, kb and in no acute distress. Head/Face: Normocephalic, atraumatic. ENT: Nares patent. No nasal discharge, no septal abnormalities noted. Tympanic membranes are normal and external auditory canals are clear. Oropharynx with no redness, swelling, or masses, exudates, or evidence of obstruction, uvula midline. Mucous membranes moist. Neck: Trachea midline, no thyromegaly or masses palpated, and no cervical lymphadenopathy. Supple, full range of motion without nuchal rigidity, or vertebral point tenderness. No Meningismus. Chest/axilla: Normal chest wall appearance and motion. Nontender with no deformity. No lesions are appreciated. Cardiovascular: Regular rate and rhythm with a normal S1 and S2. No gallops, murmurs, or rubs. Normal PMI, no JVD. No pulse deficits. Respiratory: Lungs have equal breath sounds bilaterally, clear to auscultation and percussion. No rales, rhonchi or wheezes noted. No increased work of breathing, no retractions or nasal flaring. Abdomen/GI: Soft, non-tender, with normal bowel sounds. No distension or tympany. No guarding or rebound. No evidence of tenderness throughout. Skin: Warm, dry with normal turgor. Normal color with no rashes, no lesions, and no evidence of cellulitis. MS/ Extremity: Pulses equal, no cyanosis. Neurovascular intact. Full, normal range of motion. Neuro: Awake and alert, GCS 15, oriented to person, place, time, and situation. Cranial nerves II-XII grossly intact. Motor strength 5/5 in all extremities. Sensory grossly intact. Cerebellar exam normal. Normal gait. Vital Signs: 12:05 BP 134 / 92; Pulse 83; Resp 16; Pulse Ox 97% ; ah 12:10 BP 134 / 92; Pulse 82; Resp 18; Temp 99.1; Pulse Ox 99% ; Weight 64.41 kg; Height 5 ft. ah 2 in. (157.48 cm); Pain 1/10; 13:00 BP 125 / 90; Pulse 79; Resp 16; Pulse Ox 96% ; Pain 1/10; ah 12:10 Body Mass Index 25.97 (64.41 kg, 157.48 cm) MDM: 12:19 Patient medically screened. kb 13:04 Data reviewed: vital signs, nurses notes. Data interpreted: Pulse oximetry: on room air kb is 99 %. Interpretation: normal. Counseling: I had a detailed discussion with the patient and/or guardian regarding: the historical points, exam findings, and any diagnostic results supporting the discharge/admit diagnosis, the need for outpatient follow up, a family practitioner, to return to the emergency department if symptoms worsen or persist or if there are any questions or concerns that arise at home. 13:19 ED course: Pt was seen here yesterday for generalized weakness. Labs and x-ray kb reviewed. Pt has no complaints, will discharge home to follow up with PCP. 13:48 ED course: Spoke with pt's daughter after he was discharged. She asked what tests were kb done yesterday, I educated her on diagnostics and results. She questioned why we were not repeating tests. I educated her that I would repeat tests if the pt had a complaint the warranted diagnostic evaluation, however pt has no complaints. Daughter states she at least wants his urine checked to make sure he didn't have a UTI because he was complaining of back pain at home. I agreed to check pt's urine, but educated daughter that his pain was in his upper back/low neck this morning and that he has no urinary complaints. . 01/23 13:40 Order name: Urine Dipstick--Ancillary (enter results) eb Administered Medications: No medications were administered Disposition: 16:16 Co-signature as Attending Physician, Mohamud Donovan MD I agree with the assessment and kdr plan of care. Disposition: 01/24/20 13:08 Discharged to Home. Impression: Upper Back Pain - Resolved. - Condition is Stable. - Discharge Instructions: Back Pain, Adult, [id number]. - Medication Reconciliation Form, Thank You Letter, Antibiotic Education, Prescription Opioid Use form. - Follow up: Emergency Department; When: As needed; Reason: Worsening of condition. Follow up: Private Physician; When: 2 - 3 days; Reason: Recheck today's complaints, Continuance of care, Re-evaluation by your physician. Signatures: Dispatcher [employer] EDMS Rose Flores, [employer]-C KENNEDI-Mohamud Payan MD MD [facility] Mireya Gonzalez RN RN Corrections: (The following items were deleted from the chart) 13:20 13:19 ED course: Pt was seen here yesterday for generalized weakness. Labs and x-ray kb reviewed. . kb 14:01 13:08 01/24/2020 13:08 Discharged to Home. Impression: Upper Back Pain - Resolved. Condition is Stable. Forms are Medication Reconciliation Form, Thank You Letter, Antibiotic Education, Prescription Opioid Use. Follow up: Emergency Department; When: As needed; Reason: Worsening of condition. Follow up: Private Physician; When: 2 - 3 days; Reason: Recheck today's complaints, Continuance of care, Re-evaluation by your physician. kb
[2020-01-24 14:15] VITALS: TEMP 99.1
[2020-01-24 14:16] VITALS: BP 125/90; O2SAT 96
[2020-01-24 14:51] LABS: Urine Blood NEGATIVE (NEG); Urine Glucose NEGATIVE (NEG); Urine Protein NEGATIVE (NEG)
== END 2020-01-24 14:01 | disposition home or self-care (01) ==
LOC: ER 12:05
DX: M54.9 Dorsalgia, unspecified (principal); I10 Essential (primary) hypertension; E78.00 Pure hypercholesterolemia, unspecified; Z85.46 Personal history of malignant neoplasm of prostate
CPT/HCPCS: 81003; 99283

== ENCOUNTER 2021-11-25 17:59 | Emergency (ER) | payer OTHER ==
--- OUTSIDE RECORDS SUMMARY | 2021-11-25 18:01 | XMS REPORT | Continuity of Care Document ---
:1940 Author Organization [facility] t Address [address] [place] [address] Dr. Benedict [address] [place] [id number] Care Team Providers Name Role Phone Miller_S_AH Attending Clinician Unavailable Renetta-Mbayo_A_AH Attending Clinician Unavailable Miller_S_AH Admitting Clinician Unavailable Renetta-Mbayo_A_AH Admitting Clinician Unavailable Payers Payer Name Policy Type Policy Number Effective Date Expiration Date S aram [facility] [place] - [id number] 2019 [employer] 00:00:00 (MEDICARE REPLACEMENT/ADVANT AGE - HMO) Problems Condition Condition Condition Status Onset Resolution Last Treating Co mments Source Name Details Category Date Date Treatment Clinician Date Carcinoma Carcinoma Problem Active 2019-09 Rene jessica of of 09-20 Family prostate Prostate 00:00: Practi c 00 e Hyperlipid Hyperlipid Problem Active 2019-09 V [facility]age emia emia 09-20 Family 00:00: Practic 00 e Congestive Congestive Problem Active 2019-09 [facility] heart Heart 09-20 Family failure Failure 00:00: Practic 00 e Allergies, Adverse Reactions, Alerts This patient has no known allergies or adverse reactions. Social History Smoking Status Start Date Stop Date Source Never Smoker [facility] P ractice Medications This patient has no known medications. Vital Signs Vital Name Observation Time Observation Value Comments Source Height 2020-07-22 00:00:00 62 [in_i] [facility] BMI (Body Mass 2020-07-22 00:00:00 26.5 kg/m2 [facility] Practice Body Weight 2020-07-22 00:00:00 145 [lb_av] [facility] Procedures This patient has no known procedures. Plan of Care Planned Activity Planned Date Details Comments Source Instructions [facility] Encounters Start End Encounter Admission Attending Care Care Encounter Source Date/Time Date/Time Type Type Clinicians Facility Department ID 2021-02-05 2021-02-05 Outpatient Miller_S_AH VFP VFP [address] [place] [id number] 04:29:00 04:29:00 [id number] Family Practic e 2020-08-19 2020-08-19 Outpatient Renetta-Mbayo VFP VFP [id number] [facility] 11:57:00 11:57:00 _A_AH [id number] Family Practic e 2020-08-15 2020-08-15 Outpatient Renetta-Mbayo VFP VFP [id number] [facility] 08:59:00 08:59:00 _A_AH [id number] Family Practic e 2020-08-05 2020-08-05 Outpatient Renetta-Mbayo VFP VFP [id number] [facility] 03:08:00 03:08:00 _A_AH [id number] Family Practic e 2020-08-04 2020-08-04 Outpatient Renetta-Mbayo VFP VFP [id number] [facility] 09:39:00 09:39:00 _A_AH [id number] Family Practic e 2020-08-01 2020-08-01 Outpatient Renetta-Mbayo VFP VFP [address] [place] [id number] 08:21:00 08:21:00 _A_AH [id number] Family Practic e 2020-07-30 2020-07-30 Outpatient Renetta-Mbayo VFP VFP [address] [place] [id number] 03:37:00 03:37:00 _A_AH [id number] Family Practic e 2020-07-22 2020-07-22 Jaimie VFP [place] - [id number] [facility] 00:00:00 00:00:00 [facility] Fam gabo cantu 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, [address] [address], [place] [address] , Ph. 2019-10-24 2019-10-24 Outpatient Renetta-Mbayo VFP VFP [id number] 07:12:00 07:12:00 _A_AH [id number] Family Practic e 2019-10-24 2019-10-24 Outpatient Renetta-Mbayo VFP VFP [id number] [facility] 07:12:00 07:12:00 _A_AH [id number] Family Practic e Results This patient has no known results.
--- NOTE | 2021-11-25 20:20 | RAD REPORT ---
EXAM DESCRIPTION: RAD - Chest Single View - 11/25/2021 7:57 pm CLINICAL HISTORY: COUGH COMPARISON: Two view chest 10/06/2021 TECHNIQUE: AP portable chest image was obtained 11/25/2021 7:57 pm . FINDINGS: Chronic interstitial lung disease is present with interstitial pattern not clearly differe nt from comparison. No new mass or consolidations seen. Heart and vasculature are normal. No measurab le pleural effusion and no pneumothorax. No acute bony abnormality seen. No acute aortic findings ishan pected. IMPRESSION: Interstitial fibrotic pattern is similar to comparison. No acute findings seen since 10/06/2021 study.
[2021-11-25] MEDS ORDERED: FAMOTIDINE 20 MG/2 ML VIAL IV ONE (20:32)
[2021-11-25] MEDS ORDERED: CEFTRIAXONE 1000 MG/VIAL ONE (20:32)
[2021-11-25 20:38] LABS: Absolute Lymphocytes (CBC) 0.3 K/uL (0.7-4.9); Hematocrit 39.2 % (39.6-49.0); Lymphocytes % 3.3 % (15.3-44.8); MPV 7.3 fL (7.6-11.3); RBC Red Blood Cell Count 4.28 M/uL (4.33-5.43)
[2021-11-25 20:43] LABS: Protime INR 1.04
[2021-11-25 20:44] LABS: Urine Blood 1+ (Negative); Urine Glucose Negative (Negative); Urine Protein Trace (Negative); Urine pH 6.5 (5.0-7.0)
[2021-11-25 21:06] LABS: Albumin 3.4 g/dL (3.4-5.0); Bilirubin Direct 0.1 mg/dL (0-0.2); Bilirubin Total 0.4 mg/dL (0.2-1.0); Magnesium 2.4 mg/dL (1.8-2.4); Potassium 4.4 mmol/L (3.5-5.1); Protein, Total 8.8 g/dL (6.4-8.2)
[2021-11-25 21:23] LABS: SARS-COV-2 RT PCR NEGATIVE (NEGATIVE)
[2021-11-25 21:28] LABS: White Blood Cell Scan OK (OK)
[2021-11-25 21:29] LABS: Blood Morphology Comment NOT SEEN (NOT SEEN); Platelet Estimate ADEQ
[2021-11-25] MEDS ORDERED: AMOX/K CLAV 875 MG TAB ONE (22:20)
--- NOTE | 2021-11-25 22:25 | ER ---
Nurse's Notes [facility] Name: King Dumont Age: 81 yrs Sex: Male : 1940 Arrival Date: 11/25/2021 Time: 18:02 Bed 5 Private MD: Diagnosis: Cough;Acute upper respiratory infection, unspecified;UTI/ Urinary tract infection, site not specified;Unspecified kidney failure-CHRONIC Presentation: 11/25 18:14 Chief complaint: Patient's son or daughter states: "He is not feeling good. He's hoarse ab2 and has not had much of an appetite for about a week now." Pt denies any n/v/d or pain. Coronavirus screen: Vaccine status: Patient reports receiving the 2nd dose of the covid vaccine. Client denies travel out of the [place] in the last 14 days. At this time, the client does not indicate any symptoms associated with coronavirus-19. Ebola Screen: Patient negative for fever greater than or equal to 101.5 degrees Fahrenheit, and additional compatible Ebola Virus Disease symptoms Patient denies exposure to infectious person. Patient denies travel to an Ebola-affected area in the 21 days before illness onset. No symptoms or risks identified at this time. Initial Sepsis Screen: Does the patient meet any 2 criteria? No. Patient's initial sepsis screen is negative. Does the patient have a suspected source of infection? No. Patient's initial sepsis screen is negative. Risk Assessment: Do you want to hurt yourself or someone else? Patient reports no desire to harm self or others. Onset of symptoms is unknown. 18:14 Method Of Arrival: Ambulatory ab2 18:14 Acuity: LOC 3 ab2 Triage Assessment: 18:17 General: Appears in no apparent distress. comfortable, Behavior is calm, cooperative, ab2 appropriate for age. Pain: Denies pain. GI: Parent/caregiver reports the patient having Decreased appetite. Musculoskeletal: Parent/caregiver report the patient having weakness in whole body. Historical: - Allergies: 18:16 No Known Allergies; ab2 - PMHx: 18:16 High Cholesterol; Hypertension; Prostate Cancer; ab2 - PSHx: 18:16 Coronary artery bypass graft; ab2 - Immunization history:: Adult Immunizations up to date. - Social history:: Smoking status: Patient denies any tobacco usage or history of. - Family history:: not pertinent. Screenin:35 Abuse screen: Denies threats or abuse. Denies injuries from another. Nutritional lg3 screening: No deficits noted. Tuberculosis screening: No symptoms or risk factors identified. Fall Risk IV access (20 points). Gait- Weak (10 pts.). Total [place] Fall Scale indicates Low Risk Score (25-44 pts). Side Rails Up X 2 Family Present and informed to notify staff if they need to leave bedside As available Patient and Family Educated on Fall Prevention Program and strategies. Assessment: 20:35 General: Appears in no apparent distress. comfortable, Behavior is calm, cooperative. lg3 Pain: Denies pain. Neuro: No deficits noted. Level of Consciousness is awake, alert, obeys commands, Oriented to person, place, time, situation. Cardiovascular: No deficits noted. Denies chest pain, shortness of breath. Respiratory: No deficits noted. Airway is patent Trachea midline Respiratory effort is even, unlabored, Respiratory pattern is regular, symmetrical. GI: Bowel sounds present X 4 quads. Abd is soft and non tender X 4 quads. Reports decreased appetite. : No deficits noted. No signs and/or symptoms were reported regarding the genitourinary system. EENT: No deficits noted. No signs and/or symptoms were reported regarding the EENT system. Derm: No deficits noted. No signs and/or symptoms reported regarding the dermatologic system. Skin is intact, is thin, Skin is dry. Vital Signs: 18:14 BP 129 / 86; Pulse 100; Resp 17; Temp 98.4(TE); Pulse Ox 97% ; Weight 66.22 kg; Height ab2 5 ft. 3 in. (160.02 cm); Pain 0/10; 20:37 BP 127 / 98; Pulse 95; Resp 19; Pulse Ox 97% on R/A; lg3 22:45 BP 108 / 75; Pulse 92; Resp 16; Pulse Ox 100% on R/A; kd3 18:14 Body Mass Index 25.86 (66.22 kg, 160.02 cm) ab2 ED Course: 18:02 Patient arrived in ED. as 18:16 Triage completed. ab2 18:17 Arm band placed on left wrist. ab2 19:23 Josse Miranda MD is Attending Physician. neymar 19:59 XRAY Chest (1 view) In Process Unspecified. EDMS 20:06 Dory Bai, RN is Primary Nurse. lg3 20:26 COVID-19/FLU A+B (Document "Date of Onset" if Symptomatic) Sent. lg3 20:26 Procalcitonin Sent. lg3 20:26 Lactate Sent. lg3 20:26 Blood Culture Adult (2) Sent. lg3 20:26 Lipase Sent. lg3 20:26 Basic Metabolic Panel Sent. lg3 20:26 CBC with Diff Sent. lg3 20:26 LFT's Sent. lg3 20:26 Magnesium Sent. lg3 20:26 NT PRO-BNP Sent. lg3 20:27 PT-INR Sent. lg3 20:27 Troponin HS Sent. lg3 20:27 Inserted saline lock: 20 gauge in left antecubital area, using aseptic technique. Blood lg3 collected. 20:35 Patient has correct armband on for positive identification. Bed in low position. Call lg3 light in reach. Side rails up X2. groundwater monitoring technician on. Pulse ox on. NIBP on. Door closed. Noise minimized. Warm blanket given. 20:43 Urine Culture Sent. lg3 22:23 Kedar Gomez MD is Referral Physician. neymar 22:46 No provider procedures requiring assistance completed. IV discontinued, intact, kd3 bleeding controlled, No redness/swelling at site. Pressure dressing applied. Administered Medications: 20:33 Drug: Rocephin (cefTRIAXone) 1 grams Route: IV; Rate: per protocol; Site: left lg3 antecubital; 20:33 Follow up: Response: No adverse reaction; IV Status: Completed infusion; IV Intake: [id number] 20:33 Drug: Pepcid (famotidine) 20 mg Route: IVP; Site: left antecubital; lg3 20:33 Follow up: Response: No adverse reaction lg3 22:22 Drug: Augmentin (Amoxicillin-Clavulanate) 875 mg Route: PO; lg3 22:22 Follow up: Response: No adverse reaction lg3 Intake: 20:33 IV: 50ml; Total: 50ml. lg3 Outcome: 22:24 Discharge ordered by . neymar 22:46 Discharged to home ambulatory. kd3 22:46 Condition: stable 22:46 Discharge instructions given to patient, Instructed on discharge instructions, follow up and referral plans. Demonstrated understanding of instructions, follow-up care, medications, Prescriptions given X 1. 22:46 Patient left the ED. kd3 Addendum: 11/29/2021 09:37 Addendum: Culture Results: Positive urine culture. Bacteria is resistant to, has i w intermediate sensitivity, or is not tested against prescribed antibiotics. Report given to KAHLIL for further evaluation and then to veneer manufacturer for follow up with patient. Phone call Attempt #1 spoke with , will call in prescription to [facility] in [place] tomorrow, is closed on Sundays. 11/30/2021 09:45 Addendum: Culture Results: Prescription called-in to pharmacy of choice. to [facility] in [place], [place]. Called in Macrobid 100mg BID x 10 days per Jax.DEMETRIA Arguello. Signatures: Dispatcher [employer] Josse Castro MD MD cha Martinez, Amelia as Williams, Irene, MOSES LOPES iw Marely Wyatt RN RN aa5 Dory Bai RN RN lg3 Floridalma Pascual RN RN kd3 Morteza Cole
--- NOTE | 2021-11-25 22:25 | EDPHYS ---
Physician Documentation [facility] Name: King Dumont Age: 81 yrs Sex: Male : 1940 Arrival Date: 11/25/2021 Time: 18:02 Bed 5 Private MD: ED Physician Josse Miranda HPI: 11/25 22:15 This 81 yrs old Black Male presents to ER via Ambulatory with complaints of Decreased neymar Appetite, Cough. 22:15 The patient or guardian reports cough, described as mild, difficulty breathing, flu neymar symptoms, arthralgias, low-grade fever, myalgias. Onset: The symptoms/episode began/occurred 2 day(s) ago. Severity of symptoms: At their worst the symptoms were mild, in the emergency department the symptoms are unchanged. Modifying factors: The symptoms are alleviated by nothing, the symptoms are aggravated by nothing. Associated signs and symptoms: Pertinent positives: rhinorrhea, sore throat. The patient has experienced similar episodes in the past, a few times. Historical: - Allergies: 18:16 No Known Allergies; ab2 - PMHx: 18:16 High Cholesterol; Hypertension; Prostate Cancer; ab2 - PSHx: 18:16 Coronary artery bypass graft; ab2 - Immunization history:: Adult Immunizations up to date. - Social history:: Smoking status: Patient denies any tobacco usage or history of. - Family history:: not pertinent. ROS: 22:15 Constitutional: Negative for fever, chills, and weight loss, Eyes: Negative for injury, neymar pain, redness, and discharge, ENT: Negative for injury, pain, and discharge, Neck: Negative for injury, pain, and swelling, Cardiovascular: Negative for chest pain, palpitations, and edema, Respiratory: Negative for shortness of breath, cough, wheezing, and pleuritic chest pain, Back: Negative for injury and pain, : Negative for injury, bleeding, discharge, and swelling, MS/Extremity: Negative for injury and deformity, Skin: Negative for injury, rash, and discoloration, Neuro: Negative for headache, weakness, numbness, tingling, and seizure, Psych: Negative for depression, anxiety, suicide ideation, homicidal ideation, and hallucinations, Endocrine: Negative for neck swelling, polydipsia, polyuria, polyphagia, and marked weight changes. Exam: 22:15 Constitutional: This is a well developed, well nourished patient who is awake, alert, neymar and in no acute distress. Head/Face: Normocephalic, atraumatic. Eyes: Pupils equal round and reactive to light, extra-ocular motions intact. Lids and lashes normal. Conjunctiva and sclera are non-icteric and not injected. Cornea within normal limits. Periorbital areas with no swelling, redness, or edema. ENT: Nares patent. No nasal discharge, no septal abnormalities noted. Tympanic membranes are normal and external auditory canals are clear. Oropharynx with no redness, swelling, or masses, exudates, or evidence of obstruction, uvula midline. Mucous membranes moist. Neck: Trachea midline, no thyromegaly or masses palpated, and no cervical lymphadenopathy. Supple, full range of motion without nuchal rigidity, or vertebral point tenderness. No Meningismus. Chest/axilla: Normal chest wall appearance and motion. Nontender with no deformity. No lesions are appreciated. Cardiovascular: Regular rate and rhythm with a normal S1 and S2. No gallops, murmurs, or rubs. Normal PMI, no JVD. No pulse deficits. Respiratory: Lungs have equal breath sounds bilaterally, clear to auscultation and percussion. No rales, rhonchi or wheezes noted. No increased work of breathing, no retractions or nasal flaring. Abdomen/GI: Soft, non-tender, with normal bowel sounds. No distension or tympany. No guarding or rebound. No evidence of tenderness throughout. Back: No spinal tenderness. No costovertebral tenderness. Full range of motion. Male : Normal genitalia with no discharge or lesions. Skin: Warm, dry with normal turgor. Normal color with no rashes, no lesions, and no evidence of cellulitis. MS/ Extremity: Pulses equal, no cyanosis. Neurovascular intact. Full, normal range of motion. Neuro: Awake and alert, GCS 15, oriented to person, place, time, and situation. Cranial nerves II-XII grossly intact. Motor strength 5/5 in all extremities. Sensory grossly intact. Cerebellar exam normal. Normal gait. Psych: Awake, alert, with orientation to person, place and time. Behavior, mood, and affect are within normal limits. 22:26 ECG was reviewed by the Attending Physician. [facility] Vital Signs: 18:14 BP 129 / 86; Pulse 100; Resp 17; Temp 98.4(TE); Pulse Ox 97% ; Weight 66.22 kg; Height ab2 5 ft. 3 in. (160.02 cm); Pain 0/10; 20:37 BP 127 / 98; Pulse 95; Resp 19; Pulse Ox 97% on R/A; lg3 22:45 BP 108 / 75; Pulse 92; Resp 16; Pulse Ox 100% on R/A; kd3 18:14 Body Mass Index 25.86 (66.22 kg, 160.02 cm) ab2 MDM: 19:23 Patient medically screened. neymar 22:21 Differential Diagnosis: Bronchitis Influenza Upper Respiratory Infection Sinusitis neymar Pharyngitis Otitis Media Asthma Exacerbation. Data reviewed: vital signs, nurses notes, lab test result(s), EKG, radiologic studies, plain films. Data interpreted: security monitor: rate is 95 beats/min, rhythm is regular, Pulse oximetry: on room air Interpretation: normal. Test interpretation: by ED physician or midlevel provider: ECG, plain radiologic studies. Counseling: I had a detailed discussion with the patient and/or guardian regarding: the historical points, exam findings, and any diagnostic results supporting the discharge/admit diagnosis, lab results, radiology results, the need for outpatient follow up. 11/25 19: Order name: Basic Metabolic Panel; Complete Time: 21:11 [facility] 11/25 19:26 Order name: CBC with Diff; Complete Time: 22:01 [facility] 11/25 19:26 Order name: LFT's; Complete Time: 21:11 [facility] 11/25 19:26 Order name: Magnesium; Complete Time: 21:11 [facility] 11/25 19:26 Order name: NT PRO-BNP; Complete Time: 21:11 [facility] 11/25 19:26 Order name: PT-INR; Complete Time: 21:11 [facility] 11/25 19:26 Order name: Troponin HS; Complete Time: 21:11 [facility] 11/25 19:26 Order name: Lipase; Complete Time: 21:11 [facility] 11/25 19:26 Order name: Blood Culture Adult (2) [facility] 11/25 19:26 Order name: Lactate; Complete Time: 21:11 [facility] 11/25 19:26 Order name: Procalcitonin; Complete Time: 22:01 [facility] 11/25 19:26 Order name: COVID-19/FLU A+B (Document "Date of Onset" if Symptomatic); Complete Time: [facility] 22:11/25 19:26 Order name: Urine Culture [facility] 11/25 20:44 Order name: Urine Dipstick-Ancillary; Complete Time: 21:11 EDMS 11/25 19:26 Order name: XRAY Chest (1 view); Complete Time: 21:11 [facility] 11/25 19:26 Order name: EKG; Complete Time: 19:27 [facility] 11/25 19:26 Order name: Cardiac monitoring; Complete Time: 20:26 [facility] 11/25 19:26 Order name: EKG - Nurse/Tech; Complete Time: 20: [facility] 11/25 19:26 Order name: IV Saline Lock; Complete Time: 20: [facility] 11/25 19:26 Order name: Labs collected and sent; Complete Time: 20: [facility] 11/25 19:26 Order name: O2 Per Protocol; Complete Time: 20: [facility] 11/25 19:26 Order name: O2 Sat Monitoring; Complete Time: 20: [facility] 11/25 19:26 Order name: Urine Dipstick-Ancillary (obtain specimen); Complete Time: 20:43 [facility] 11/25 21:29 Order name: CBC Smear Scan; Complete Time: 22:01 EDMS EC: Rate is 99 beats/min. Rhythm is regular. QRS [place] is Normal. FL interval is normal. QRS neymar interval is normal. QT interval is normal. No Q waves. T waves are Normal. No ST changes noted. Clinical impression: NSR w/ Non-specific ST/T Changes and No evidence of ischemia. Interpreted by me. Reviewed by me. Administered Medications: 20:33 Drug: Rocephin (cefTRIAXone) 1 grams Route: IV; Rate: per protocol; Site: left lg3 antecubital; 20:33 Follow up: Response: No adverse reaction; IV Status: Completed infusion; IV Intake: 24cpvn3 20:33 Drug: Pepcid (famotidine) 20 mg Route: IVP; Site: left antecubital; lg3 20:33 Follow up: Response: No adverse reaction lg3 22:22 Drug: Augmentin (Amoxicillin-Clavulanate) 875 mg Route: PO; lg3 22:22 Follow up: Response: No adverse reaction lg3 Disposition Summary: 11/25/21 22:24 Discharge Ordered Location: Home [facility] Problem: new neymar Symptoms: have improved neymar Condition: Stable neymar Diagnosis - Cough neymar - Acute upper respiratory infection, unspecified neymar - UTI/ Urinary tract infection, site not specified neymar - Unspecified kidney failure - CHRONIC neymar Followup: neymar - With: Private Physician - When: Tomorrow - Reason: Recheck today's complaints, Continuance of care, Re-evaluation by your physician Followup: neymar - With: Kedar Gomez MD - When: Tomorrow - Reason: Recheck today's complaints, Continuance of care, Re-evaluation by your physician Discharge Instructions: - Discharge Summary Sheet neymar - Upper Respiratory Infection, Adult neymar - Urinary Tract Infection, Adult neymar - Cool Mist Vaporizer neymar - Upper Respiratory Infection, Adult, Silf-dg-Gxai neymar - Pharyngitis, Adpe-gs-Hkso neymar - Cough, Adult, Gtbt-mg-Extx neymar - Cough, Adult neymar - Chronic Kidney Disease, Adult, Qrhh-ki-Mnwb neymar Forms: - Medication Reconciliation Form [facility] - Thank You Letter [facility] - Antibiotic Education [facility] - Prescription Opioid Use [facility] Prescriptions: - Augmentin 875-125 mg Oral Tablet - take 1 tablet by ORAL route every 12 hours for 10 days; 20 tablet; Refills: 0, neymar Product Selection Permitted Signatures: Dispatcher [employer] Josse Castro MD MD cha Gibson, Lacie, MOSES RN lg3 Morteza Cole Sophia, PA PA sb3
[2021-11-25 23:19] VITALS: TEMP 98.4
[2021-11-25 23:22] VITALS: BP 108/75; O2SAT 100
--- NOTE | 2021-11-26 07:43 | EKG ---
Test Date: 2021-11-25 Test Time: 20:18:59 Buck Presser: PETR MEASUREMENT RESULTS: Intervals: Rate: 100 OK: 136 QRSD: 76 QT: 342 QTc: 441 [place]: P: 39 OK: 136 QRS: 28 T: 36 INTERPRETIVE STATEMENTS: * Pediatric ECG analysis * Normal sinus rhythm Nonspecific ST abnormality Compared to ECG 01/23/2020 15:40:39 No significant changes Electronically Signed On 11-26-21 07:41:24 CDT by Nolan Benson
== END 2021-11-25 22:46 | disposition home or self-care (01) ==
LOC: ER 17:59
DX: J06.9 Acute upper respiratory infection, unspecified (principal); N39.0 Urinary tract infection, site not specified; I12.9 Hypertensive chronic kidney disease with stage 1 through stage 4 chronic kidney disease, or unspecified chronic kidney disease; N18.9 Chronic kidney disease, unspecified; Z95.1 Presence of aortocoronary bypass graft; Z85.46 Personal history of malignant neoplasm of prostate; Z20.822 Contact with and (suspected) exposure to COVID-19
CPT/HCPCS: 93005; 87040 ×2; 87088; 85025; 87086; 80048; 36415; 83735; 85610; 80076; 83605; 87077; 87186; 81003; 84484; 83690; 84145; 83880; 0240U; 71045; 96375; 96374; 99284

== ENCOUNTER 2023-05-01 16:46 | Emergency (ER) | payer OTHER ==
--- OUTSIDE RECORDS SUMMARY | 2023-05-01 16:49 | XMS REPORT | Continuity of Care Document ---
:1940 Author Organization [facility] t Address [address] [place] [address] [place] [id number] Care Team Providers Name Role Phone Miller_S_AH Attending Clinician Unavailable Renetta-Mbayo_A_AH Attending Clinician Unavailable Miller_S_AH Admitting Clinician Unavailable Renetta-Mbayo_A_AH Admitting Clinician Unavailable Payers Payer Name Policy Type Policy Number Effective Date Expiration Date S aram [facility] [place] - [id number] 2019 [employer] 00:00:00 (MEDICARE REPLACEMENT/ADVANT AGE - HMO) Problems Condition Condition Condition Status Onset Resolution Last Treating Co mments Source Name Details Category Date Date Treatment Clinician Date Carcinoma Carcinoma Problem Active 2019-09 Rene jessica of of 16 Family prostate Prostate 00:00: Practi c 00 e Hyperlipid Hyperlipid Problem Active 2019-09 [facility] emia emia -16 Family 00:00: Practic 00 e Congestive Congestive Problem Active 2019-09 [facility] heart Heart 16 Family failure Failure 00:00: Practic 00 e Allergies, Adverse Reactions, Alerts This patient has no known allergies or adverse reactions. Social History Smoking Status Start Date Stop Date Source Never Smoker [facility] P ractice Medications This patient has no known medications. Vital Signs Vital Name Observation Time Observation Value Comments Source Height 2020-07-22 00:00:00 62 [in_i] [facility] BMI (Body Mass 2020-07-22 00:00:00 26.5 kg/m2 [facility] Index) Practice Body Weight 2020-07-22 00:00:00 145 [lb_av] [facility] Procedures This patient has no known procedures. Plan of Care Planned Activity Planned Date Details Comments Source Instructions [facility] Encounters Start End Encounter Admission Attending Care Care Encounter Source Date/Time Date/Time Type Type Clinicians Facility Department ID 2021-02-05 2021-02-05 Outpatient Miller_S_AH VFP VFP [id number] [facility] 04:29:00 04:29:00 [id number] Family Practic e 2020-08-19 2020-08-19 Outpatient Renetta-Mbayo VFP VFP [id number] [facility] 11:57:00 11:57:00 _A_AH [id number] Family Practic e 2020-08-15 2020-08-15 Outpatient Renetta-Mbayo VFP VFP [id number] [facility] 08:59:00 08:59:00 _A_AH [id number] Family Practic e 2020-08-05 2020-08-05 Outpatient Renetta-Mbayo VFP VFP [id number] [facility] 03:08:00 03:08:00 _A_AH [id number] Family Practic e 2020-08-04 2020-08-04 Outpatient Renetta-Mbayo VFP VFP [id number] [facility] 09:39:00 09:39:00 _A_AH [id number] Family Practic e 2020-08-01 2020-08-01 Outpatient Renetta-Mbayo VFP VFP [id number] [facility] 08:21:00 08:21:00 _A_AH [id number] Family Practic e 2020-07-30 2020-07-30 Outpatient Renetta-Mbayo VFP VFP [id number] 03:37:00 03:37:00 _A_AH [id number] Family Practic e 2020-07-22 2020-07-22 Jaimie VFP [place] - [id number] [facility] 00:00:00 00:00:00 RenettaLuisay [facility] Fam gabo cantu 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 2019-10-24 2019-10-24 Outpatient Renetta-Mbayo VFP VFP [id number] [facility] 07:12:00 07:12:00 _A_AH [id number] Family Practic e 2019-10-24 2019-10-24 Outpatient Renetta-Mbayo VFP VFP [id number] [facility] 07:12:00 07:12:00 _A_AH [id number] Family Practic e Results This patient has no known results.
[2023-05-01 18:12] LABS: Absolute Lymphocytes (CBC) 1.3 K/uL (0.7-4.9); Lymphocytes % 19.6 % (15.3-44.8); MCV 91.4 fL (80-100); MPV 6.9 fL (7.6-11.3); Platelets 227 thou/uL (152-406); RBC Red Blood Cell Count 3.83 M/uL (4.33-5.43)
[2023-05-01 18:34] LABS: Magnesium 2.4 mg/dL (1.6-2.4); Potassium 3.8 mEq/L (3.5-5.1); Troponin High Sensitivity 8.5 pg/mL (<58.9)
--- NOTE | 2023-05-01 19:30 | RAD REPORT ---
EXAM DESCRIPTION: RADChest Single View05/01/2023 6:55 pm CLINICAL HISTORY: COUGH COMPARISON: Chest Single View dated 03/04/2022; Chest Single View dated 03/01/2022; Chest Single View dated 11/25/2021; Chest Pa And Lat (2 Views) dated 10/06/2021; Thorax Wo Con dated 03/04/2022 TECHNIQUE: Portable AP view of the chest. FINDINGS: Chronic interstitial thickening, most prominent peripherally, stable. Stable bibasilar int erstitial and alveolar opacities more pronounced on the left. No pneumothorax or effusion. The cardio mediastinal contours are unremarkable. Sequelae of prior median sternotomy. IMPRESSION: Stable findings as above, suggestive of chronic interstitial lung disease. No new focal airspace opacities, although superimposed early infection would be difficult to exclude.
[2023-05-01 19:54] LABS: Urine Bacteria None Seen /HPF (<20); Urine Bilirubin NEGATIVE (Negative); Urine Blood Negative (Negative); Urine Clarity Clear (Clear); Urine Color Light-Yellow (Yellow); Urine Glucose NEGATIVE (Negative); Urine Mucus Slight /HPF (None Seen); Urine Protein NEGATIVE (Negative); Urine RBC <5 /HPF (None Seen); Urine Urobilinogen Normal (Normal)
--- NOTE | 2023-05-01 20:03 | ER ---
Nurse's Notes [facility] Name: Kign Dumont Age: 83 yrs Sex: Male : 1940 Arrival Date: 05/01/2023 Time: 16:46 Bed 5 Private MD: Kedar Gomez Diagnosis: Influenza due to other identified influenza virus with pneumonia Presentation: 05/01 17:25 Chief complaint: Patient states: pain all over, difficulty breathing. Coronavirus jl7 screen: At this time, the client does not indicate any symptoms associated with coronavirus-19. Ebola Screen: No symptoms or risks identified at this time. Initial Sepsis Screen: Does the patient meet any 2 criteria? No. Patient's initial sepsis screen is negative. Does the patient have a suspected source of infection? No. Patient's initial sepsis screen is negative. Risk Assessment: Do you want to hurt yourself or someone else? Patient reports no desire to harm self or others. Onset of symptoms is unknown. 17:25 Method Of Arrival: Ambulatory [facility] 17:25 Acuity: LOC 3 jl7 Triage Assessment: 18:11 Respiratory: the patient has mild shortness of breath. ph Historical: - Allergies: 17:26 No Known Allergies; jl7 - PMHx: 17:26 Chronic obstructive lung disease; High Cholesterol; Hypertension; Prostate Cancer; jl7 - PSHx: 17:26 Coronary artery bypass graft; hernia; jl7 - Immunization history:: Adult Immunizations unknown. - Social history:: Smoking status: Patient denies any tobacco usage or history of. Screenin:04 [facility] ED Fall Risk Assessment (Adult) History of falling in the last 3 months, ph including since admission No falls in past 3 months (0 pts) Confusion or Disorientation No (0 pts) Intoxicated or Sedated No (0 pts) Impaired Gait No (0 pts) Mobility Assist Device Used No (0 pt) Altered Elimination No (0 pt) Score/Fall Risk Level 0 - 2 = Low Risk Oriented to surroundings, Maintained a safe environment, Hourly rounding (assess needs \\T\\ fall precautionary measures) done. Abuse screen: Denies threats or abuse. Denies injuries from another. Nutritional screening: No deficits noted. Tuberculosis screening: No symptoms or risk factors identified. Assessment: 18:08 General: Appears in no apparent distress. comfortable, well groomed, Behavior is calm, ph cooperative, appropriate for age, Denies fever. Pain: Complains of pain in "body aches". Neuro: Level of Consciousness is awake, alert, obeys commands, Oriented to person, place, time, situation. Cardiovascular: Reports shortness of breath, Denies chest pain. Respiratory: Airway is patent Respiratory effort is even, unlabored, Respiratory pattern is regular, symmetrical. GI: No signs and/or symptoms were reported involving the gastrointestinal system. Patient currently denies nausea, vomiting. : No signs and/or symptoms were reported regarding the genitourinary system. Derm: Skin is pink, warm \\T\\ dry. Vital Signs: 17:25 BP 110 / 92; Pulse 90; Resp 17; Temp 97.7; Pulse Ox 100% ; Weight 64.41 kg; Height 5 7 ft. 3 in. ; Pain 10/10; 18:12 BP 125 / 85; Pulse 90; Resp 18; Pulse Ox 100% on R/A; ph 17:25 Body Mass Index 25.15 (64.41 kg, 160.02 cm) 7 17:25 Pain Scale: Adult [facility] ED Course: 16:47 Patient arrived in ED. rg4 16:47 Kedar Gomez MD is Private Physician. rg4 16:50 [facility] Bunch [facility]. cp 16:50 Josse Miranda MD is Attending Physician. cp 17:26 Triage completed. jl7 17:26 Arm band placed on right wrist. jl7 17:33 Lala Meza, RN is Primary Nurse. ph 18:05 Patient has correct armband on for positive identification. Placed in gown. Bed in low ph position. Call light in reach. Side rails up X2. beamer operator on. Pulse ox on. NIBP on. 18:07 No provider procedures requiring assistance completed. Initial lab(s) drawn, by me, ph sent to lab. EKG done, by ED staff, reviewed by Josse GALVEZ COVID swab sent to lab. Flu and/or RSV swab sent to lab. Inserted saline lock: 22 gauge in left antecubital area, using aseptic technique. Blood collected. 18:11 SARS-COV-2 RT PCR Sent. ph 18:11 Basic Metabolic Panel Sent. ph 18:11 CBC with Diff Sent. ph 18:11 Magnesium Sent. ph 18:11 NT PRO-BNP Sent. ph 18:11 Troponin HS Sent. ph 18:56 XRAY Chest (1 view) In Process Unspecified. EDMS 20:55 IV discontinued, intact, bleeding controlled, No redness/swelling at site. Pressure bp dressing applied. Administered Medications: No medications were administered Medication: 18:08 VIS not applicable for this client. ph Outcome: 20:03 Discharge ordered by . cp 20:55 Discharged to home via wheelchair, with family. bp 20:55 Condition: stable 20:55 Discharge instructions given to patient. 20:55 Patient left the ED. bp Signatures: Dispatcher [employer] EDMS Lala Meza RN RN ph Josse Bunch PA PA cp Garcia, Rubi rg4 Trevor Edmonds RN RN jl7 Yg Kent RN RN bp Corrections: (The following items were deleted from the chart) 18:12 18:11 Influenza Screen (A \\T\\ B)+BA.LAB.TWAN drawn and sent. ph EDMS
--- NOTE | 2023-05-01 20:03 | EDPHYS ---
Physician Documentation [facility] Name: King Dumont Age: 83 yrs Sex: Male : 1940 Arrival Date: 05/01/2023 Time: 16:46 Bed 5 Private MD: Kedar Gomez ED Physician Josse Miranda HPI: 05/01 17:50 This 83 yrs old Black Male presents to ER via Ambulatory with complaints of Body Aches, cp Breathing Difficulty. 17:50 The patient has shortness of breath with light activity. cp 17:50 Associated signs and symptoms: Pertinent positives: non-productive cough, body aches, cp chills, Pertinent negatives: chest pain, diaphoresis, fever, vomiting. Severity of symptoms: in the emergency department the symptoms are unchanged despite home interventions. Historical: - Allergies: 17:26 No Known Allergies; jl7 - PMHx: 17:26 Chronic obstructive lung disease; High Cholesterol; Hypertension; Prostate Cancer; jl7 - PSHx: 17:26 Coronary artery bypass graft; hernia; jl7 - Immunization history:: Adult Immunizations unknown. - Social history:: Smoking status: Patient denies any tobacco usage or history of. ROS: 17:55 Constitutional: Positive for body aches, malaise, Negative for fever. cp 17:55 Eyes: Negative for injury, pain, redness, and discharge. cp 17:55 Respiratory: Positive for cough. 17:55 Abdomen/GI: Negative for abdominal pain, vomiting, diarrhea, constipation. 17:55 ENT: Negative for drainage from ear(s), ear pain, difficulty swallowing, difficulty cp handling secretions. 17:55 Cardiovascular: Negative for chest pain, edema, palpitations. 17:55 Back: Positive for pain at rest, pain with movement. cp 17:55 Skin: Negative for rash. 17:55 Neuro: Negative for altered mental status, dizziness, numbness, syncope, weakness. 17:55 : Positive for urinary frequency. cp Exam: 17:55 Head/Face: Normocephalic, atraumatic. cp 17:55 Constitutional: The patient appears in no acute distress, alert, awake, non-diaphoretic, non-toxic, well developed, well nourished, uncomfortable. 17:55 Eyes: Periorbital structures: appear normal, Conjunctiva: normal, no exudate, no injection, Sclera: no appreciated abnormality, Lids and lashes: appear normal, bilaterally. 17:55 ENT: External ear(s): are unremarkable, Nose: is normal, Mouth: Lips: moist, Oral cp mucosa: pink and intact, moist, Posterior pharynx: is normal, airway is patent, no erythema, no exudate. 17:55 Neck: ROM/movement: is normal, is supple, without pain, no range of motions limitations, no meningismus, Lymph nodes: no appreciated lymphadenopathy. 17:55 Chest/axilla: Inspection: normal, Palpation: is normal, no crepitus, no tenderness. 17:55 Cardiovascular: Rate: normal, Rhythm: regular, Edema: is not appreciated, JVD: is not appreciated. 17:55 Respiratory: the patient does not display signs of respiratory distress, Respirations: normal, no use of accessory muscles, no retractions, labored breathing, Breath sounds: are clear throughout, no decreased breath sounds, no stridor, no wheezing. 17:55 Abdomen/GI: Inspection: abdomen appears normal, Palpation: abdomen is soft and non-tender, in all quadrants. 17:55 Back: pain, that is mild, ROM is normal. 17:55 Skin: cellulitis, is not appreciated, no rash present. 17:55 Neuro: Orientation: to person, place \T\ time. Mentation: able to follow commands, slow to respond. 18:07 ECG was reviewed by the Attending Physician. Vital Signs: 17:25 BP 110 / 92; Pulse 90; Resp 17; Temp 97.7; Pulse Ox 100% ; Weight 64.41 kg; Height 5 jl7 ft. 3 in. ; Pain 10/10; 18:12 BP 125 / 85; Pulse 90; Resp 18; Pulse Ox 100% on R/A; ph 17:25 Body Mass Index 25.15 (64.41 kg, 160.02 cm) jl7 17:25 Pain Scale: Adult jl7 MDM: 17:16 Patient medically screened. cp 18:00 Differential diagnosis: Bronchitis CHF exacerbation, pneumonia, pulmonary edema, cp Pulmonary Embolism Sepsis Unstable Angina. 20:03 Data reviewed: vital signs, nurses notes, lab test result(s), EKG, radiologic studies, cp plain films. 20:03 Consideration of Admission/Observation Escalation of care including cp admission/observation considered. I considered the following discharge prescriptions or medication management in the emergency department Medications were administered in the Emergency Department. See MAR. Independent interpretation of the following test(s) in the Emergency Department EKG: See my EKG interpretation above. Test considered but Not performed: CT: chest. Care significantly affected by the following chronic conditions: Hypertension, Chronic Obstructive Pulmonary Disease. Counseling: I had a detailed discussion with the patient and/or guardian regarding the historical points, exam findings, and any diagnostic results supporting the discharge/admit diagnosis, lab results, radiology results, the need for outpatient follow up, a general surgeon. 05/01 17:40 Order name: Basic Metabolic Panel; Complete Time: 19:06 05/01 19:07 Interpretation: Normal except: NA 135; CRE 1.32; GFR 53. 05/01 17:40 Order name: CBC with Diff; Complete Time: 19:06 05/01 19:07 Interpretation: Normal except: RBC 3.83; HGB 11.6; HCT 35.0; MPV 6.9. 05/01 17:40 Order name: Magnesium; Complete Time: 19:06 05/01 17:40 Order name: NT PRO-BNP; Complete Time: 19:06 05/01 17:40 Order name: Troponin HS; Complete Time: 19:06 05/01 17:40 Order name: Urinalysis W/Microscopic; Complete Time: 20:40 05/01 17:41 Order name: SARS-COV-2 RT PCR; Complete Time: 19:06 05/01 17:41 Order name: Influenza Screen (a \T\ B); Complete Time: 19:06 05/01 19:07 Interpretation: Normal except: FLUB FLU B ----- POSITIVE for FLU B protein antigen. 05/01 17:40 Order name: XRAY Chest (1 view); Complete Time: 19:31 05/01 17:40 Order name: EKG; Complete Time: 17:41 05/01 17:40 Order name: Cardiac monitoring; Complete Time: 18:11 05/01 17:40 Order name: EKG - Nurse/Tech; Complete Time: 18:11 05/01 17:40 Order name: IV Saline Lock; Complete Time: 18:11 05/01 17:40 Order name: Labs collected and sent; Complete Time: 18:11 cp 05/01 17:40 Order name: O2 Per Protocol; Complete Time: 18:11 cp 05/01 17:40 Order name: O2 Sat Monitoring; Complete Time: 18:11 cp EC:07 Rate is 88 beats/min. Rhythm is regular. DC interval is normal. QRS interval is normal. cp QT interval is normal. T waves are Inverted in leads aVL, V2, V4, V5. Interpreted by me. Reviewed by me. Administered Medications: No medications were administered Disposition Summary: 05/01/23 20:03 Discharge Ordered Location: Home cp Problem: new cp Symptoms: have improved cp Condition: Stable cp Diagnosis - Influenza due to other identified influenza virus with pneumonia cp Followup: cp - With: Private Physician - When: 2 - 3 days - Reason: Recheck today's complaints Discharge Instructions: - Influenza, Adult snw - Rehydration, Pediatric snw - Discharge Summary Sheet cp Forms: - Medication Reconciliation Form cp - Thank You Letter cp - Antibiotic Education cp - Prescription Opioid Use cp - Patient Portal Instructions cp - Leadership Thank You Letter cp Prescriptions: - Zithromax Z-Payam 250 mg Oral Tablet - take 1 tablet by ORAL route as directed for 5 days Day 1 - take two (2) tablets cp one time. Day 2, 3, 4 , 5 take one (1) tablet once daily.; 6 tablet; Refills: 0, Product Selection Permitted Signatures: Dispatcher [employer] EDME Cyndy Goncalves FNP-C [employer] Josse Bunch PA PA cp Trevor Edmonds, RN RN jl7 Corrections: (The following items were deleted from the chart) 18:12 17:41 Influenza Screen (A \T\ B)+BA.LAB.BRZ ordered. EDME EDMS 05/02 20:22 05/01 17:55 All other systems are negative, cp cp
[2023-05-01 21:46] VITALS: BP 125/85; O2SAT 100
--- NOTE | 2023-05-02 12:14 | EKG ---
Test Date: 2023-05-01 Test Time: 18:00:50 Chain Sales Representative: HB MEASUREMENT RESULTS: Intervals: Rate: 88 AK: 158 QRSD: 84 QT: 360 QTc: 435 [place]: P: 50 [place]: 158 QRS: 5 T: 81 INTERPRETIVE STATEMENTS: Normal sinus rhythm ST & T wave abnormality, consider anterior ischemia Abnormal ECG Compared to ECG 03/03/2022 08:47:55 ST (T wave) deviation now present Possible ischemia now present Electronically Signed On 05-02-23 12:12:13 CDT by Albin Nguyen
== END 2023-05-01 20:55 | disposition home or self-care (01) ==
LOC: ER 16:46
DX: J10.00 Influenza due to other identified influenza virus with unspecified type of pneumonia (principal); J44.9 Chronic obstructive pulmonary disease, unspecified; I10 Essential (primary) hypertension; Z20.822 Contact with and (suspected) exposure to COVID-19; Z95.1 Presence of aortocoronary bypass graft
CPT/HCPCS: 36415; 71045; 80048; 81001; 83735; 83880; 84484; 85025; 87635; 87804; 93005; 99284

== ENCOUNTER 2024-10-23 10:49 | Day surgery (SDC) | payer OTHER ==
[2024-10-18 13:40] LABS: Absolute Eosinophils 0.4 K/uL (0-0.5); Absolute Lymphocytes (CBC) 1.8 K/uL (0.7-4.9); Absolute Monocytes 0.9 K/uL (0.1-1.3); Absolute Neutrophil 4.1 K/uL (1.8-8.0); Basophils % 0.4 % (0-1.3); Eosinophils % 5.1 % (0-4.4); Hematocrit 32.5 % (39.6-49.0); Hemoglobin 10.9 g/dL (13.6-17.9); Lymphocytes % 25.4 % (15.3-44.8); MCH 30.7 pg (27.0-35.0); MCHC 33.7 g/dL (32.0-36.0); MCV 91.3 fL (80-100); MPV 7.6 fL (7.6-11.3); Neutrophils % 57.1 % (41.7-73.7); Nucleated Red Blood Cells % 0.1 % (0-0); Platelets 189 thou/uL (152-406); RBC Red Blood Cell Count 3.56 M/uL (4.33-5.43); Red Cell Distribution Width 13.5 % (12.1-15.2)
[2024-10-18 13:45] LABS: PT Prothrombin Time 11.8 SECONDS (9.4-12.5); PTT, Activated Partial Thromb 36.6 SECONDS (24.3-36.9); Protime INR 1.13
[2024-10-18 13:59] LABS: Anion Gap 8.2 mEq/L (5.0-15.0); Potassium 4.2 mEq/L (3.5-5.1)
--- NOTE | 2024-10-18 19:32 | RAD REPORT ---
EXAMINATION: TWO VIEW CHEST XR CLINICAL INDICATION: Male, 84 years old. 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 Cough. Shortness of breath TECHNIQUE: 2 view radiographs of the chest were performed. COMPARISON: 04/17/2014 FINDINGS: The lungs are again suboptimally inflated. Stable reticular opacities in the lower lungs, medially on the right, and peripherally on the left, with milder peripheral right upper to midlung reticular opacities. Background hyperlucency/hyperinflation. No new focal airspace opacity. No pneumothorax or sizable effusion. The heart is normal in size. Mediastinal contours are unchanged with sequelae of median sternotomy. IMPRESSION: Stable findings as above, suggesting chronic interstitial lung disease.
[2024-10-23] MEDS ORDERED: NA CHLORIDE 0.9% 500 ML ONE ×2 (10:57→11:48)
[2024-10-23] MEDS ORDERED: HEPARIN 10,000 UNIT/10 ML VIAL IV ONE (11:58)
[2024-10-23] MEDS ORDERED: ATROPINE SULF 1 MG/10 ML SYR IV ONE (11:58)
[2024-10-23] MEDS ORDERED: LIDOCAINE 1% 20 ML MDV ONE ×2 (11:58→13:05)
[2024-10-23] MEDS ORDERED: HEPA 1000U/500MLS 2,000 UNIT/1,000 ML BAG IV ONE (11:58)
[2024-10-23] MEDS ORDERED: ASPIRIN 325 MG TAB ONE (11:59)
[2024-10-23] MEDS ORDERED: NALOXONE 0.4 MG/ML VIAL ONE (11:59)
[2024-10-23] MEDS ORDERED: CLOPIDOGREL 75 MG TABLET ONE (11:59)
[2024-10-23] MEDS ORDERED: FLUMAZENIL 0.1 MG/ML (5 mL VIAL) IV ONE (11:59)
[2024-10-23] MEDS ORDERED: TICAGRELOR 90 MG TABLET PO ONE (11:59)
[2024-10-23] MEDS ORDERED: MIDAZOLAM HCL 2 MG/2 ML INJ ONE (12:00)
[2024-10-23] MEDS ORDERED: FENTANYL CITR 100 MCG/2 ML ONE (12:01)
[2024-10-23] MEDS ORDERED: HEPARIN 5000 UNIT/ML 1 ML VIAL ONE (13:06)
[2024-10-23 14:22] VITALS: TEMP 97.3
[2024-10-23 17:04] VITALS: O2SAT 99
[2024-10-23 17:41] VITALS: BP 105/77
--- NOTE | 2024-10-26 21:18 | OP ---
Date of Procedure: 10/23/2024 Surgeon: ANASTASIA LARSEN Procedure Performed: 1. Coronary angiogram. 2. Right heart catheterization. Diagnosis: Aortic valve stenosis evaluation. Description Of Procedure: After risks, benefits, and alternatives were explained, the patient agreed to the procedure, signed informed consent. The patient was brought into the cardiac catheterization laboratory, prepped and draped in usual sterile fashion. Then, I accessed the right common femoral artery using micropuncture kit, ultrasound guidance, fluoroscopy, placed 6-Belgian Phoenix sheath. T hen, I accessed right common femoral vein, I used the micropuncture kit, ultrasound guidance, and flu oroscopy and placed a 7-Belgian pinnacle sheath and then took a 7-Belgian balloon-tipped Stanford catheter into the right atrium, right ventricle, pulmonary artery and wedge, obtained waveform and pressure an d obtained cardiac output by thermodilution method and then took a 6-Belgian JL3.5 catheter into the a ortic root. There was significant tortuosity in the groin both sides and made the manipulation of th e catheter extremely difficult. However, the angiogram showed that the left main is totally occluded . Then exchanged for 6-Belgian JL-4 catheter and engaged the SVG graft to OM and the LUX to LAD, too k standard views and the RCA was not able to engage it as was not able to torque. Then, I accessed r ight radial artery, trying to engage the RCA and cross the aortic valve. However, there was signific ant tortuosity of the brachiocephalic and subclavian artery and could not maneuver the equipments eit her. At this point decided to abort the procedure, removed the catheter. The radial sheath was nomi cam. TR band was used for closure and the femoral sheath was removed and manual pressure was applied and the venous sheath was removed and manual pressure was applied. Findings: 1. Left main is totally occluded. 2. RCA is not injected due to difficult tortuosity from 2 accesses. 3. Patent LUX to LAD. 4. There is an SVG graft to OM that has 90% ostial stenosis. Right heart catheterization numbers: RA pressure was 34/9, mean of 13, PA pressure was 22/70, mean 2 2. Pulmonary wedge pressure was 13. Cardiac output average was 3.1 L/minutes. Conclusion: Severe [place] coronary artery disease. However, due to significant tortuosity in access es, I feel this is not amenable to intervention. I recommend medical management at this point. /ANISH Voice ID: [id number] Report ID: [id number]
--- NOTE | 2024-10-29 12:52 | EKG ---
Test Date: 2024-10-18 Test Time: 14:21:50 Finishing Inspector: ALEKSANDER MEASUREMENT RESULTS: Intervals: Rate: 78 [place]: 160 QRSD: 82 QT: 388 QTc: 442 [place]: P: 37 [place]: 160 QRS: -6 T: 28 INTERPRETIVE STATEMENTS: Normal sinus rhythm RSR' or QR pattern in V1 suggests right ventricular conduction delay Nonspecific T wave abnormality Abnormal ECG Compared to ECG 05/01/2023 18:00:50 RSR' in V1 or V2 now present T-wave abnormality now present ST (T wave) deviation no longer present Possible ischemia no longer present Electronically Signed On 10-29-24 12:25:03 TOOL GRINDER by Paul Reyes
== END 2024-10-23 17:40 | disposition home or self-care (01) ==
LOC: CCL 10:49
PROVIDERS: ATTEND Internal Medicine
DX: I35.0 Nonrheumatic aortic (valve) stenosis (principal); I25.10 Atherosclerotic heart disease of native coronary artery without angina pectoris; I25.82 Chronic total occlusion of coronary artery; I77.1 Stricture of artery; I71.20 Thoracic aortic aneurysm, without rupture, unspecified; I10 Essential (primary) hypertension; E78.5 Hyperlipidemia, unspecified; Z95.1 Presence of aortocoronary bypass graft; Z79.82 Long term (current) use of aspirin; Z79.899 Other long term (current) drug therapy
CPT/HCPCS: 93005; 85025; 80048; 36415; 85610; 85730; 71046; 93457; 76937; C1893; Q9967; C1887; J2003 ×2; J2250; J3010; J7040 ×2; 93456; 99152; 99153; J0461; J1644; J2310